=== PATIENT | male | born 1960 | race Caucasian/White ===

== ENCOUNTER 2018-09-08 19:46 | Inpatient (IN) | payer OTHER ==
[2018-09-08] MEDS: morphine 4 MG/ML VIAL IV (22:41)
[2018-09-08] MEDS: SOD CHLORIDE 0.9% 500 ML IV (22:43)
[2018-09-08 22:53] LABS: ADD MAN DIFF? NO
[2018-09-08 22:55] LABS: BASOPHIL # 0.2 10^3/ul (0.0-0.1); BASOPHILS % 1.5 % (0.0-2.0); EOSINOPHILS # 0.4 10^3/ul (0.0-0.5); EOSINOPHILS % 4.2 % (0.0-7.0); HEMATOCRIT 31.4 % (42.0-52.0); LYMPHOCYTES # 1.7 10^3/ul (0.8-2.9); LYMPHOCYTES % 16.9 % (15.0-51.0); MEAN CORPUSCULAR HEMOGLOBIN 28.2 pg (29.0-33.0); MEAN CORPUSCULAR HGB CONC 31.8 g/dl (32.0-37.0); MEAN CORPUSCULAR VOLUME 88.5 fl (82.0-101.0); MEAN PLATELET VOLUME 8.8 fl (7.4-10.4); MONOCYTES % 10.2 % (0.0-11.0); NEUTROPHIL # 6.7 10^3/ul (1.6-7.5); NEUTROPHILS % 65.7 % (39.0-77.0); PLATELET COUNT 741 10^3/UL (140-415); RED BLOOD COUNT 3.55 10^6/ul (4.70-6.10); RED CELL DISTRIBUTION WIDTH 16.6 % (11.5-14.5)
[2018-09-08 22:55] LABS: WHITE BLOOD COUNT 10.1 10^3/ul (4.8-10.8)
[2018-09-08 23:12] LABS: ANION GAP 11 (8-16); BLOOD UREA NITROGEN 10 mg/dl (7-20); CALCIUM 9.4 mg/dl (8.4-10.2); CARBON DIOXIDE 29 mmol/L (21-31); CHLORIDE 103 mmol/L (97-110); CREATININE 0.59 mg/dl (0.61-1.24); GLUCOSE 132 mg/dl (70-220); POTASSIUM 3.2 mmol/L (3.5-5.1); SODIUM 140 mmol/L (135-144)
[2018-09-08] MEDS ORDERED: ONDANSETRON 4 MG INJ (23:21)
[2018-09-09] MEDS: ONDANSETRON 4 MG INJ IV (00:26)
[2018-09-09] MEDS: ETOMIDATE 20 MG INJ IV ×3 (00:27→03:26)
[2018-09-09] MEDS: LIDOCAINE 1% (MPF) 30 ML INJ INJ ×2 (00:32→03:27)
[2018-09-09] MEDS: HALOPERIDOL 5 MG INJ IV (02:21)
[2018-09-09] MEDS ORDERED: HYDROCODONE/APAP (5/325) TAB PO (02:30)
[2018-09-09] MEDS ORDERED: NACL 0.9% 3 ML SYG IV (02:30)
[2018-09-09] MEDS: KETAMINE (50 MG/ML) 10 ML VIAL IV (03:16)
[2018-09-09] MEDS: LORAZEPAM 2 MG INJ IV (03:16)
[2018-09-09 06:12] LABS: ADD MAN DIFF? NO
[2018-09-09 06:20] LABS: BASOPHIL # 0.1 10^3/ul (0.0-0.1); BASOPHILS % 0.8 % (0.0-2.0); EOSINOPHILS # 0.4 10^3/ul (0.0-0.5); EOSINOPHILS % 3.6 % (0.0-7.0); HEMOGLOBIN 10.2 g/dl (14.0-18.0); LYMPHOCYTES # 1.9 10^3/ul (0.8-2.9); LYMPHOCYTES % 18.3 % (15.0-51.0); MEAN CORPUSCULAR HEMOGLOBIN 28.3 pg (29.0-33.0); MEAN CORPUSCULAR HGB CONC 31.9 g/dl (32.0-37.0); MEAN CORPUSCULAR VOLUME 88.9 fl (82.0-101.0); MEAN PLATELET VOLUME 8.9 fl (7.4-10.4); NEUTROPHIL # 6.8 10^3/ul (1.6-7.5); PLATELET COUNT 766 10^3/UL (140-415); RED CELL DISTRIBUTION WIDTH 16.5 % (11.5-14.5)
[2018-09-09 06:20] LABS: WHITE BLOOD COUNT 10.3 10^3/ul (4.8-10.8)
[2018-09-09 07:04] LABS: ALANINE AMINOTRANSFERASE 13 IU/L (13-69); ALBUMIN 2.7 g/dl (3.3-4.9); ALBUMIN/GLOBULIN RATIO 0.69; ALKALINE PHOSPHATASE 94 IU/L (42-121); ANION GAP 10 (8-16); ASPARTATE AMINO TRANSFERASE 26 IU/L (15-46); BILIRUBIN,INDIRECT 0.6 mg/dl (0-1.1); BILIRUBIN,TOTAL 0.6 mg/dl (0.2-1.3); BLOOD UREA NITROGEN 9 mg/dl (7-20); CALCIUM 8.8 mg/dl (8.4-10.2); CARBON DIOXIDE 30 mmol/L (21-31); CHLORIDE 104 mmol/L (97-110); CREATININE 0.59 mg/dl (0.61-1.24); GLUCOSE 91 mg/dl (70-220); SODIUM 141 mmol/L (135-144); TOTAL PROTEIN 6.6 g/dl (6.1-8.1)
[2018-09-09 07:17] LABS: POTASSIUM 2.9 mmol/L (3.5-5.1)
[2018-09-09] MEDS: SOD CHLORIDE 0.9% 100 ML (08:45)
[2018-09-09] MEDS: IOHEXOL 100 ML (08:45)
[2018-09-09] MEDS: POTASSIUM CHLORIDE 20 MEQ POWDER FOR ORAL SOLN PO (11:00)
[2018-09-09] MEDS: POTASSIUM CHLORIDE 100 ML IVPB ×2 (12:00→13:58)
[2018-09-09] MEDS: HYDROCODONE/APAP (5/325) TAB PO ×2 (12:23→20:20)
[2018-09-09] MEDS: ACETAMINOPHEN 325 MG TAB PO ×2 (12:24→20:29)
[2018-09-09] MEDS: ALBUTEROL/IPRATROPIUM (NEB) 3 ML AMP HHN ×2 (13:31→21:59)
[2018-09-09] MEDS: ENOXAPARIN 60 MG/0.6 ML SYG SC ×2 (14:38→20:33)
[2018-09-09 15:45] LABS: LACTIC ACID 1.2 mmol/L (0.5-2.0)
[2018-09-09] MEDS: BUDESONIDE (NEB) 0.5MG/2ML AMP HHN ×2 (16:49→21:59)
[2018-09-09] MEDS: LEVOFLOXACIN 750MG/D5W (PMX) 150 ML IVPB (16:55)
[2018-09-10] MEDS: HYDROCODONE/APAP (5/325) TAB PO ×4 (03:45→21:53)
[2018-09-10] MEDS: ACETAMINOPHEN 325 MG TAB PO (04:50)
[2018-09-10 06:12] LABS: ADD MAN DIFF? NO
[2018-09-10 06:22] LABS: WHITE BLOOD COUNT 11.2 10^3/ul (4.8-10.8)
[2018-09-10 06:22] LABS: BASOPHIL # 0.1 10^3/ul (0.0-0.1); EOSINOPHILS # 0.2 10^3/ul (0.0-0.5); EOSINOPHILS % 1.7 % (0.0-7.0); HEMATOCRIT 31.4 % (42.0-52.0); HEMOGLOBIN 10.1 g/dl (14.0-18.0); LYMPHOCYTES # 1.4 10^3/ul (0.8-2.9); LYMPHOCYTES % 12.1 % (15.0-51.0); MEAN CORPUSCULAR HEMOGLOBIN 28.1 pg (29.0-33.0); MEAN CORPUSCULAR HGB CONC 32.2 g/dl (32.0-37.0); MEAN CORPUSCULAR VOLUME 87.5 fl (82.0-101.0); MONOCYTE # 1.3 10^3/ul (0.3-0.9); MONOCYTES % 11.7 % (0.0-11.0); NEUTROPHILS % 71.8 % (39.0-77.0); PLATELET COUNT 741 10^3/UL (140-415); RED BLOOD COUNT 3.59 10^6/ul (4.70-6.10); RED CELL DISTRIBUTION WIDTH 16.6 % (11.5-14.5)
[2018-09-10 06:38] LABS: ANION GAP 9 (8-16); BLOOD UREA NITROGEN 8 mg/dl (7-20); CALCIUM 9.9 mg/dl (8.4-10.2); CARBON DIOXIDE 32 mmol/L (21-31); CHLORIDE 100 mmol/L (97-110); CREATININE 0.61 mg/dl (0.61-1.24); GLUCOSE 125 mg/dl (70-220); MAGNESIUM 1.4 mg/dl (1.7-2.5); PHOSPHORUS 4.7 mg/dl (2.5-4.9); POTASSIUM 4.4 mmol/L (3.5-5.1); SODIUM 137 mmol/L (135-144)
[2018-09-10] MEDS ORDERED: VANCOMYCIN IV PER PHARMACY XX (08:00)
[2018-09-10] MEDS: ALBUTEROL/IPRATROPIUM (NEB) 3 ML AMP HHN ×3 (08:42→19:48)
[2018-09-10] MEDS: BUDESONIDE (NEB) 0.5MG/2ML AMP HHN ×2 (08:42→19:48)
[2018-09-10] MEDS: VANCOMYCIN 1.25 GM in SOD CHLORIDE 0.9% 250 ML IVPB (09:53)
[2018-09-10] MEDS: ENOXAPARIN 60 MG/0.6 ML SYG SC ×2 (10:00→20:22)
[2018-09-10 10:43] LABS: ADD UMIC NO; UR ASCORBIC ACID NEGATIVE (NEGATIVE); UR BILIRUBIN (Dip) NEGATIVE (NEGATIVE); UR BLOOD (Dip) NEGATIVE (NEGATIVE); UR CLARITY CLEAR (CLEAR); UR COLOR YELLOW (YELLOW); UR GLUCOSE (Dip) NEGATIVE (NEGATIVE); UR KETONES (Dip) NEGATIVE (NEGATIVE); UR LEUKOCYTE ESTERASE (Dip) NEGATIVE Leu/ul (NEGATIVE); UR NITRITE (Dip) NEGATIVE (NEGATIVE); UR SPECIFIC GRAVITY (Dip) 1.017 (1.003-1.030); UR TOTAL PROTEIN (Dip) NEGATIVE (NEGATIVE); UR UROBILINOGEN (Dip) NEGATIVE (NEGATIVE)
[2018-09-10] MEDS: predniSONE 20 MG TAB PO (11:23)
[2018-09-10] MEDS: PIPER-TAZO 3.375 GM IV (PMX) 100 ML IVPB ×3 (12:34→23:03)
[2018-09-10] MEDS: GUAIFENESIN 20 MG/ML 5ML CUP PO (20:10)
[2018-09-10] MEDS: VANCOMYCIN 750 MG in SOD CHLORIDE 0.9% 150 ML IVPB (20:16)
[2018-09-11] MEDS: GUAIFENESIN 20 MG/ML 5ML CUP PO (01:54)
[2018-09-11] MEDS: PIPER-TAZO 3.375 GM IV (PMX) 100 ML IVPB ×3 (05:28→18:28)
[2018-09-11] MEDS: HYDROCODONE/APAP (5/325) TAB PO ×2 (05:29→16:07)
[2018-09-11 06:12] LABS: ADD MAN DIFF? NO
[2018-09-11 06:18] LABS: WHITE BLOOD COUNT 7.7 10^3/ul (4.8-10.8)
[2018-09-11 06:18] LABS: BASOPHIL # 0.1 10^3/ul (0.0-0.1); BASOPHILS % 0.8 % (0.0-2.0); EOSINOPHILS % 0.4 % (0.0-7.0); HEMATOCRIT 29.1 % (42.0-52.0); HEMOGLOBIN 9.2 g/dl (14.0-18.0); LYMPHOCYTES # 1.5 10^3/ul (0.8-2.9); LYMPHOCYTES % 19.3 % (15.0-51.0); MEAN CORPUSCULAR HGB CONC 31.6 g/dl (32.0-37.0); MEAN CORPUSCULAR VOLUME 88.4 fl (82.0-101.0); MEAN PLATELET VOLUME 9.1 fl (7.4-10.4); MONOCYTE # 1.1 10^3/ul (0.3-0.9); MONOCYTES % 13.6 % (0.0-11.0); NEUTROPHILS % 64.2 % (39.0-77.0); PLATELET COUNT 703 10^3/UL (140-415); RED BLOOD COUNT 3.29 10^6/ul (4.70-6.10); RED CELL DISTRIBUTION WIDTH 16.6 % (11.5-14.5)
[2018-09-11 06:47] LABS: ANION GAP 9 (8-16); BLOOD UREA NITROGEN 12 mg/dl (7-20); CALCIUM 9.9 mg/dl (8.4-10.2); CARBON DIOXIDE 31 mmol/L (21-31); CHLORIDE 103 mmol/L (97-110); CREATININE 0.63 mg/dl (0.61-1.24); GLUCOSE 105 mg/dl (70-220); MAGNESIUM 1.5 mg/dl (1.7-2.5); SODIUM 139 mmol/L (135-144)
[2018-09-11] MEDS: ACETAMINOPHEN 325 MG TAB PO (08:07)
[2018-09-11] MEDS: predniSONE 10 MG TAB PO (08:07)
[2018-09-11] MEDS: VANCOMYCIN 750 MG in SOD CHLORIDE 0.9% 150 ML IVPB ×2 (08:08→21:39)
[2018-09-11] MEDS: ENOXAPARIN 60 MG/0.6 ML SYG SC (08:15)
[2018-09-11] MEDS: BUDESONIDE (NEB) 0.5MG/2ML AMP HHN ×2 (08:35→20:17)
[2018-09-11] MEDS: ALBUTEROL/IPRATROPIUM (NEB) 3 ML AMP HHN ×3 (08:35→20:17)
[2018-09-11] MEDS: MAGNESIUM SULFATE 2 GM/50 ML 50 ML IVPB (10:56)
[2018-09-11] MEDS: HYDROmorphONE 0.5 MG/0.5 ML SYG IV ×2 (12:52→20:07)
[2018-09-11] MEDS: RIVAROXABAN 15 MG TABLET PO (18:30)
[2018-09-11 21:04] LABS: VANCOMYCIN,TROUGH < 5.0 ug/ml (10.0-20.0)
[2018-09-12] MEDS: PIPER-TAZO 3.375 GM IV (PMX) 100 ML IVPB ×4 (00:16→18:08)
[2018-09-12] MEDS: HYDROmorphONE 0.5 MG/0.5 ML SYG IV ×4 (01:38→22:01)
[2018-09-12 05:59] LABS: ADD MAN DIFF? NO
[2018-09-12 06:10] LABS: BASOPHIL # 0.1 10^3/ul (0.0-0.1); BASOPHILS % 0.7 % (0.0-2.0); EOSINOPHILS % 0.3 % (0.0-7.0); HEMOGLOBIN 9.4 g/dl (14.0-18.0); LYMPHOCYTES # 1.9 10^3/ul (0.8-2.9); LYMPHOCYTES % 20.5 % (15.0-51.0); MEAN CORPUSCULAR HEMOGLOBIN 28.4 pg (29.0-33.0); MEAN CORPUSCULAR HGB CONC 31.3 g/dl (32.0-37.0); MEAN CORPUSCULAR VOLUME 90.6 fl (82.0-101.0); MONOCYTES % 10.5 % (0.0-11.0); NEUTROPHIL # 6.2 10^3/ul (1.6-7.5); NEUTROPHILS % 65.8 % (39.0-77.0); PLATELET COUNT 752 10^3/UL (140-415); RED BLOOD COUNT 3.31 10^6/ul (4.70-6.10); RED CELL DISTRIBUTION WIDTH 16.8 % (11.5-14.5)
[2018-09-12 06:10] LABS: WHITE BLOOD COUNT 9.5 10^3/ul (4.8-10.8)
[2018-09-12 06:33] LABS: ANION GAP 8 (8-16); BLOOD UREA NITROGEN 11 mg/dl (7-20); CALCIUM 8.5 mg/dl (8.4-10.2); CARBON DIOXIDE 28 mmol/L (21-31); CHLORIDE 109 mmol/L (97-110); CREATININE 0.64 mg/dl (0.61-1.24); GLUCOSE 98 mg/dl (70-220); MAGNESIUM 1.8 mg/dl (1.7-2.5); PHOSPHORUS 3.4 mg/dl (2.5-4.9); POTASSIUM 3.9 mmol/L (3.5-5.1); SODIUM 141 mmol/L (135-144)
[2018-09-12] MEDS: VANCOMYCIN 1.25 GM in SOD CHLORIDE 0.9% 250 ML IVPB ×2 (06:36→19:08)
[2018-09-12] MEDS: ALBUTEROL/IPRATROPIUM (NEB) 3 ML AMP HHN ×3 (08:00→21:43)
[2018-09-12] MEDS: RIVAROXABAN 15 MG TABLET PO ×2 (08:12→18:07)
[2018-09-12] MEDS: predniSONE 20 MG TAB PO (08:12)
[2018-09-12] MEDS: BUDESONIDE (NEB) 0.5MG/2ML AMP HHN ×2 (09:00→21:43)
[2018-09-12] MEDS: GUAIFENESIN 20 MG/ML 5ML CUP PO (13:37)
[2018-09-12] MEDS: ONDANSETRON 4 MG INJ IV (18:20)
[2018-09-13] MEDS: PIPER-TAZO 3.375 GM IV (PMX) 100 ML IVPB ×4 (00:11→17:42)
[2018-09-13] MEDS: HYDROCODONE/APAP (5/325) TAB PO ×2 (00:21→17:42)
[2018-09-13 05:50] LABS: ADD MAN DIFF? NO
[2018-09-13 05:53] LABS: BASOPHIL # 0.1 10^3/ul (0.0-0.1); BASOPHILS % 1.1 % (0.0-2.0); EOSINOPHILS % 0.3 % (0.0-7.0); HEMATOCRIT 30.9 % (42.0-52.0); HEMOGLOBIN 9.7 g/dl (14.0-18.0); LYMPHOCYTES # 1.8 10^3/ul (0.8-2.9); LYMPHOCYTES % 19.9 % (15.0-51.0); MEAN CORPUSCULAR HEMOGLOBIN 28.1 pg (29.0-33.0); MEAN CORPUSCULAR HGB CONC 31.4 g/dl (32.0-37.0); MEAN CORPUSCULAR VOLUME 89.6 fl (82.0-101.0); MONOCYTE # 1.1 10^3/ul (0.3-0.9); MONOCYTES % 12.2 % (0.0-11.0); NEUTROPHIL # 5.7 10^3/ul (1.6-7.5); NEUTROPHILS % 64.4 % (39.0-77.0); RED BLOOD COUNT 3.45 10^6/ul (4.70-6.10)
[2018-09-13 05:53] LABS: WHITE BLOOD COUNT 8.9 10^3/ul (4.8-10.8)
[2018-09-13 06:10] LABS: PLATELET COUNT 720 10^3/UL (140-415)
[2018-09-13 06:31] LABS: ANION GAP 8 (8-16); BLOOD UREA NITROGEN 10 mg/dl (7-20); CALCIUM 9.5 mg/dl (8.4-10.2); CARBON DIOXIDE 34 mmol/L (21-31); CHLORIDE 102 mmol/L (97-110); CREATININE 0.69 mg/dl (0.61-1.24); GLUCOSE 98 mg/dl (70-220); MAGNESIUM 1.7 mg/dl (1.7-2.5); PHOSPHORUS 3.7 mg/dl (2.5-4.9); POTASSIUM 4.3 mmol/L (3.5-5.1); SODIUM 140 mmol/L (135-144)
[2018-09-13] MEDS: VANCOMYCIN 1.25 GM in SOD CHLORIDE 0.9% 250 ML IVPB ×2 (06:50→17:43)
[2018-09-13] MEDS: HYDROmorphONE 0.5 MG/0.5 ML SYG IV ×3 (06:51→20:14)
[2018-09-13] MEDS: BUDESONIDE (NEB) 0.5MG/2ML AMP HHN ×2 (07:52→20:54)
[2018-09-13] MEDS: ALBUTEROL/IPRATROPIUM (NEB) 3 ML AMP HHN ×3 (07:52→20:54)
[2018-09-13] MEDS: predniSONE 20 MG TAB PO (08:14)
[2018-09-13] MEDS: RIVAROXABAN 15 MG TABLET PO ×2 (08:15→17:42)
[2018-09-14] MEDS: PIPER-TAZO 3.375 GM IV (PMX) 100 ML IVPB ×4 (00:08→17:30)
[2018-09-14] MEDS: HYDROmorphONE 0.5 MG/0.5 ML SYG IV ×6 (00:08→23:01)
[2018-09-14] MEDS: ONDANSETRON 4 MG INJ IV ×4 (00:14→23:01)
[2018-09-14] MEDS: VANCOMYCIN 1.25 GM in SOD CHLORIDE 0.9% 250 ML IVPB (05:58)
[2018-09-14 06:25] LABS: ADD MAN DIFF? NO
[2018-09-14 06:35] LABS: WHITE BLOOD COUNT 8.6 10^3/ul (4.8-10.8)
[2018-09-14 06:35] LABS: BASOPHIL # 0.1 10^3/ul (0.0-0.1); BASOPHILS % 1.2 % (0.0-2.0); EOSINOPHILS # 0.1 10^3/ul (0.0-0.5); EOSINOPHILS % 0.6 % (0.0-7.0); HEMATOCRIT 33.5 % (42.0-52.0); HEMOGLOBIN 10.4 g/dl (14.0-18.0); LYMPHOCYTES % 23.1 % (15.0-51.0); MEAN CORPUSCULAR HEMOGLOBIN 28.3 pg (29.0-33.0); MEAN PLATELET VOLUME 10.5 fl (7.4-10.4); MONOCYTE # 1.1 10^3/ul (0.3-0.9); MONOCYTES % 12.5 % (0.0-11.0); NEUTROPHIL # 5.1 10^3/ul (1.6-7.5); NEUTROPHILS % 59.2 % (39.0-77.0); PLATELET COUNT 628 10^3/UL (140-415); RED BLOOD COUNT 3.68 10^6/ul (4.70-6.10); RED CELL DISTRIBUTION WIDTH 16.8 % (11.5-14.5)
[2018-09-14 07:10] LABS: VANCOMYCIN,TROUGH 8.1 ug/ml (10.0-20.0)
[2018-09-14 07:19] LABS: ALBUMIN 3.6 g/dl (3.3-4.9); ANION GAP 10 (8-16); BLOOD UREA NITROGEN 14 mg/dl (7-20); CALCIUM 9.5 mg/dl (8.4-10.2); CARBON DIOXIDE 31 mmol/L (21-31); CHLORIDE 104 mmol/L (97-110); CREATININE 0.72 mg/dl (0.61-1.24); GLUCOSE 80 mg/dl (70-220); MAGNESIUM 1.7 mg/dl (1.7-2.5); PHOSPHORUS 5.2 mg/dl (2.5-4.9); POTASSIUM 4.6 mmol/L (3.5-5.1); SODIUM 140 mmol/L (135-144)
[2018-09-14] MEDS: ALBUTEROL/IPRATROPIUM (NEB) 3 ML AMP HHN ×4 (08:24→23:17)
[2018-09-14] MEDS: predniSONE 20 MG TAB PO (08:52)
[2018-09-14] MEDS: RIVAROXABAN 15 MG TABLET PO ×2 (08:53→17:29)
[2018-09-14] MEDS: BUDESONIDE (NEB) 0.5MG/2ML AMP HHN ×2 (09:00→19:58)
[2018-09-14] MEDS: VANCOMYCIN 750 MG in SOD CHLORIDE 0.9% 150 ML IVPB ×2 (14:24→22:08)
[2018-09-15] MEDS: PIPER-TAZO 3.375 GM IV (PMX) 100 ML IVPB ×4 (00:08→17:35)
[2018-09-15] MEDS: HYDROmorphONE 0.5 MG/0.5 ML SYG IV ×3 (03:12→11:18)
[2018-09-15] MEDS: ONDANSETRON 4 MG INJ IV ×5 (03:12→23:23)
[2018-09-15] MEDS: LIDOCAINE 5% 35 GM OINT TOP (03:59)
[2018-09-15] MEDS: VANCOMYCIN 750 MG in SOD CHLORIDE 0.9% 150 ML IVPB ×2 (06:34→15:31)
[2018-09-15] MEDS: predniSONE 20 MG TAB PO (08:09)
[2018-09-15] MEDS: RIVAROXABAN 15 MG TABLET PO ×2 (08:09→17:35)
[2018-09-15] MEDS: BUDESONIDE (NEB) 0.5MG/2ML AMP HHN ×2 (08:30→20:25)
[2018-09-15] MEDS: ALBUTEROL/IPRATROPIUM (NEB) 3 ML AMP HHN ×3 (08:30→20:25)
[2018-09-15 14:15] LABS: ADD MAN DIFF? NO
[2018-09-15 14:18] LABS: ABNORMAL IP MESSAGE 1; BASOPHIL # 0.1 10^3/ul (0.0-0.1); BASOPHILS % 0.5 % (0.0-2.0); EOSINOPHILS % 0.3 % (0.0-7.0); HEMATOCRIT 31.7 % (42.0-52.0); LYMPHOCYTES # 0.6 10^3/ul (0.8-2.9); LYMPHOCYTES % 5.4 % (15.0-51.0); MEAN CORPUSCULAR HEMOGLOBIN 28.6 pg (29.0-33.0); MEAN CORPUSCULAR HGB CONC 31.5 g/dl (32.0-37.0); MEAN CORPUSCULAR VOLUME 90.6 fl (82.0-101.0); MEAN PLATELET VOLUME 9.3 fl (7.4-10.4); MONOCYTE # 0.5 10^3/ul (0.3-0.9); MONOCYTES % 3.9 % (0.0-11.0); NEUTROPHIL # 9.7 10^3/ul (1.6-7.5); NEUTROPHILS % 84.4 % (39.0-77.0); PLATELET COUNT 752 10^3/UL (140-415); POSITIVE DIFF @See below; RED CELL DISTRIBUTION WIDTH 16.8 % (11.5-14.5)
[2018-09-15 14:18] LABS: WHITE BLOOD COUNT 11.5 10^3/ul (4.8-10.8)
[2018-09-15 14:43] LABS: ANION GAP 11 (5-13); BLOOD UREA NITROGEN 14 mg/dl (7-20); CALCIUM 9.4 mg/dl (8.4-10.2); CARBON DIOXIDE 32 mmol/L (21-31); CHLORIDE 100 mmol/L (97-110); CREATININE 0.69 mg/dl (0.61-1.24); GLUCOSE 127 mg/dl (70-220); MAGNESIUM 1.8 mg/dl (1.7-2.5); POTASSIUM 4.5 mmol/L (3.5-5.1); SODIUM 138 mmol/L (135-144)
[2018-09-15] MEDS: HYDROmorphONE 1 MG/ML SYG IV ×3 (15:31→23:24)
[2018-09-15] MEDS: DICLOFENAC SODIUM 1% GEL 100 GM TUBE TP ×2 (17:34→21:41)
[2018-09-15] MEDS: VANCOMYCIN 1 GM 250 ML IVPB (21:42)
[2018-09-16] MEDS: PIPER-TAZO 3.375 GM IV (PMX) 100 ML IVPB ×4 (00:36→17:58)
[2018-09-16] MEDS: GUAIFENESIN 20 MG/ML 5ML CUP PO (00:50)
[2018-09-16] MEDS: HYDROmorphONE 1 MG/ML SYG IV ×5 (03:23→20:39)
[2018-09-16] MEDS: ONDANSETRON 4 MG INJ IV ×5 (03:23→20:38)
[2018-09-16 06:01] LABS: ABNORMAL IP MESSAGE 1; HEMATOCRIT 30.1 % (42.0-52.0); HEMOGLOBIN 9.6 g/dl (14.0-18.0); MEAN CORPUSCULAR HEMOGLOBIN 28.6 pg (29.0-33.0); MEAN CORPUSCULAR HGB CONC 31.9 g/dl (32.0-37.0); MEAN CORPUSCULAR VOLUME 89.6 fl (82.0-101.0); MEAN PLATELET VOLUME 8.9 fl (7.4-10.4); PLATELET COUNT 697 10^3/UL (140-415); POSITIVE DIFF @See below; RED BLOOD COUNT 3.36 10^6/ul (4.70-6.10)
[2018-09-16 06:01] LABS: WHITE BLOOD COUNT 11.2 10^3/ul (4.8-10.8)
[2018-09-16 06:09] LABS: ADD MAN DIFF? YES
[2018-09-16 06:37] LABS: ALBUMIN 3.1 g/dl (3.3-4.9); ANION GAP 11 (5-13); BLOOD UREA NITROGEN 13 mg/dl (7-20); CALCIUM 9.1 mg/dl (8.4-10.2); CARBON DIOXIDE 30 mmol/L (21-31); CHLORIDE 103 mmol/L (97-110); CREATININE 0.63 mg/dl (0.61-1.24); GLUCOSE 91 mg/dl (70-220); MAGNESIUM 1.9 mg/dl (1.7-2.5); PHOSPHORUS 3.9 mg/dl (2.5-4.9); POTASSIUM 4.2 mmol/L (3.5-5.1); SODIUM 140 mmol/L (135-144)
[2018-09-16] MEDS: VANCOMYCIN 1 GM 250 ML IVPB ×3 (07:27→23:32)
[2018-09-16] MEDS: ALBUTEROL/IPRATROPIUM (NEB) 3 ML AMP HHN ×3 (07:46→19:58)
[2018-09-16] MEDS: BUDESONIDE (NEB) 0.5MG/2ML AMP HHN ×2 (07:50→19:58)
[2018-09-16] MEDS: predniSONE 20 MG TAB PO (08:23)
[2018-09-16] MEDS: RIVAROXABAN 15 MG TABLET PO (08:23)
[2018-09-16] MEDS: DICLOFENAC SODIUM 1% GEL 100 GM TUBE TP ×4 (08:23→20:39)
[2018-09-16 09:27] LABS: BASOPHIL #M 0.6 10^3/ul (0.0-0.0); BASOPHILS % (M) 6 % (0-2); EOSINOPHILS % (M) 2 % (0-7); GIANT THROMBO% (M) 2 % (0-0); HYPOCHROMASIA 1+ (0-0); LYMPHOCYTES #M 2.3 10^3/ul (0.8-2.9); LYMPHOCYTES % (M) 21 % (15-51); METAMYELOCYTES #M 0.1 10^3/ul (0.0-0.0); METAMYELOCYTES %M 1 % (0-0); MONOCYTE #M 0.8 10^3/ul (0.3-0.9); MONOCYTES % (M) 8 % (0-11); PLATELET ESTIMATE INCREASED; REACTIVE LYMPHOCYTES #M 0.1 10^3/ul (0.0-0.0); REACTIVE LYMPHOCYTES% (M) 1 % (0-0); SEGMENTED NEUTROPHILS (M) % 61 % (39-77); SMUDGE%M 5 % (0-0)
[2018-09-17] MEDS: HYDROmorphONE 1 MG/ML SYG IV ×6 (00:53→23:00)
[2018-09-17] MEDS: ONDANSETRON 4 MG INJ IV ×5 (00:53→19:20)
[2018-09-17] MEDS: PIPER-TAZO 3.375 GM IV (PMX) 100 ML IVPB ×4 (01:55→18:00)
[2018-09-17 05:46] LABS: VANCOMYCIN,TROUGH 16.3 ug/ml (10.0-20.0)
[2018-09-17] MEDS: VANCOMYCIN 1 GM 250 ML IVPB ×4 (07:29→22:01)
[2018-09-17] MEDS: ALBUTEROL/IPRATROPIUM (NEB) 3 ML AMP HHN ×3 (08:39→20:09)
[2018-09-17] MEDS: BUDESONIDE (NEB) 0.5MG/2ML AMP HHN ×2 (08:39→20:09)
[2018-09-17] MEDS: predniSONE 20 MG TAB PO (09:41)
[2018-09-17] MEDS: DICLOFENAC SODIUM 1% GEL 100 GM TUBE TP ×4 (09:46→21:52)
[2018-09-17] MEDS: GUAIFENESIN 20 MG/ML 5ML CUP PO (10:51)
[2018-09-18] MEDS: PIPER-TAZO 3.375 GM IV (PMX) 100 ML IVPB ×4 (00:18→18:30)
[2018-09-18] MEDS: HYDROmorphONE 1 MG/ML SYG IV ×5 (03:23→21:20)
[2018-09-18] MEDS: VANCOMYCIN 1 GM 250 ML IVPB (06:51)
[2018-09-18] MEDS: predniSONE 20 MG TAB PO (08:19)
[2018-09-18] MEDS: DICLOFENAC SODIUM 1% GEL 100 GM TUBE TP ×4 (08:20→21:19)
[2018-09-18] MEDS: ONDANSETRON 4 MG INJ IV (10:15)
[2018-09-18] MEDS: ALBUTEROL/IPRATROPIUM (NEB) 3 ML AMP HHN ×3 (10:21→20:02)
[2018-09-18] MEDS: BUDESONIDE (NEB) 0.5MG/2ML AMP HHN ×2 (10:21→20:02)
[2018-09-18 10:35] LABS: ABNORMAL IP MESSAGE 1; HEMATOCRIT 31.9 % (42.0-52.0); HEMOGLOBIN 9.8 g/dl (14.0-18.0); MEAN CORPUSCULAR HEMOGLOBIN 27.8 pg (29.0-33.0); MEAN CORPUSCULAR HGB CONC 30.7 g/dl (32.0-37.0); MEAN CORPUSCULAR VOLUME 90.4 fl (82.0-101.0); MEAN PLATELET VOLUME 8.9 fl (7.4-10.4); PLATELET COUNT 817 10^3/UL (140-415); POSITIVE DIFF @See below; RED BLOOD COUNT 3.53 10^6/ul (4.70-6.10); RED CELL DISTRIBUTION WIDTH 17.2 % (11.5-14.5)
[2018-09-18 10:35] LABS: WHITE BLOOD COUNT 12.7 10^3/ul (4.8-10.8)
[2018-09-18 10:39] LABS: ADD MAN DIFF? YES
[2018-09-18] MEDS ORDERED: HEPARIN 5,000 UNIT/0.5 ML VIAL ×3 (10:39→21:07)
[2018-09-18 10:43] LABS: PLATELET COUNT 817 10^3/UL (140-415)
[2018-09-18] MEDS: HEPARIN SODIUM 5,000 UNIT/ML VIAL SC ×3 (10:47→21:35)
[2018-09-18 10:54] LABS: INR 0.94; PARTIAL THROMBOPLASTIN TIME 28.5 Sec (23.0-35.0); PROTIME 12.7 Sec (11.9-14.9)
[2018-09-18 10:57] LABS: ANION GAP 5 (5-13); BLOOD UREA NITROGEN 17 mg/dl (7-20); CALCIUM 9.3 mg/dl (8.4-10.2); CARBON DIOXIDE 32 mmol/L (21-31); CHLORIDE 102 mmol/L (97-110); CREATININE 0.83 mg/dl (0.61-1.24); GLUCOSE 101 mg/dl (70-220); MAGNESIUM 1.8 mg/dl (1.7-2.5); PHOSPHORUS 4.2 mg/dl (2.5-4.9); POTASSIUM 4.1 mmol/L (3.5-5.1); SODIUM 139 mmol/L (135-144)
[2018-09-18 11:00] LABS: BASOPHIL #M 0.2 10^3/ul (0.0-0.0); BASOPHILS % (M) 2 % (0-2); EOSINOPHILS % (M) 1 % (0-7); LYMPHOCYTES #M 1.2 10^3/ul (0.8-2.9); LYMPHOCYTES % (M) 10 % (15-51); MONOCYTE #M 1.7 10^3/ul (0.3-0.9); MONOCYTES % (M) 14 % (0-11); MYELOCYTES #M 0.1 10^3/ul (0.0-0.0); MYELOCYTES % (M) 1 % (0-0); PLATELET ESTIMATE INCREASED; REACTIVE LYMPHOCYTES #M 0.2 10^3/ul (0.0-0.0); REACTIVE LYMPHOCYTES% (M) 2 % (0-0); SEGMENTED NEUTROPHILS (M) % 70 % (39-77); SMUDGE%M 13 % (0-0)
[2018-09-18 12:00] LABS: THROMBIN TIME 17.5 SEC (13.8-19.1)
[2018-09-18] MEDS: HYDROCODONE/APAP (5/325) TAB PO (22:18)
[2018-09-19] MEDS: HYDROmorphONE 1 MG/ML SYG IV ×6 (01:16→22:25)
[2018-09-19 05:16] LABS: ABNORMAL IP MESSAGE 1; HEMATOCRIT 30.2 % (42.0-52.0); HEMOGLOBIN 9.5 g/dl (14.0-18.0); MEAN CORPUSCULAR HEMOGLOBIN 28.6 pg (29.0-33.0); MEAN CORPUSCULAR HGB CONC 31.5 g/dl (32.0-37.0); MEAN PLATELET VOLUME 8.9 fl (7.4-10.4); PLATELET COUNT 753 10^3/UL (140-415); POSITIVE DIFF @See below; RED BLOOD COUNT 3.32 10^6/ul (4.70-6.10)
[2018-09-19 05:16] LABS: WHITE BLOOD COUNT 12.7 10^3/ul (4.8-10.8)
[2018-09-19 05:22] LABS: ADD MAN DIFF? YES
[2018-09-19 05:34] LABS: PROTIME 12.2 Sec (11.9-14.9)
[2018-09-19] MEDS ORDERED: HEPARIN 5,000 UNIT/0.5 ML VIAL ×2 (05:46→14:13)
[2018-09-19 05:51] LABS: ALBUMIN 2.9 g/dl (3.3-4.9); ANION GAP 9 (5-13); BLOOD UREA NITROGEN 20 mg/dl (7-20); CALCIUM 9.3 mg/dl (8.4-10.2); CARBON DIOXIDE 27 mmol/L (21-31); CHLORIDE 103 mmol/L (97-110); CREATININE 0.72 mg/dl (0.61-1.24); GLUCOSE 83 mg/dl (70-220); MAGNESIUM 1.7 mg/dl (1.7-2.5); PHOSPHORUS 4.1 mg/dl (2.5-4.9); POTASSIUM 3.7 mmol/L (3.5-5.1); SODIUM 139 mmol/L (135-144)
[2018-09-19] MEDS: PIPER-TAZO 3.375 GM IV (PMX) 100 ML IVPB ×4 (05:53→17:37)
[2018-09-19] MEDS: HEPARIN SODIUM 5,000 UNIT/ML VIAL SC ×3 (06:09→21:51)
[2018-09-19 07:09] LABS: ANISOCYTOSIS 1+ (0-0); BAND NEUTROPHILS #M 0.1 10^3/ul (0.0-0.6); BAND NEUTROPHILS % (M) 1 % (0-4); BASOPHIL #M 0.2 10^3/ul (0.0-0.0); BASOPHILS % (M) 2 % (0-2); EOSINOPHILS % (M) 2 % (0-7); HYPOCHROMASIA 1+ (0-0); LYMPHOCYTES #M 2.5 10^3/ul (0.8-2.9); LYMPHOCYTES % (M) 20 % (15-51); METAMYELOCYTES #M 0.5 10^3/ul (0.0-0.0); METAMYELOCYTES %M 4 % (0-0); MONOCYTE #M 0.8 10^3/ul (0.3-0.9); MONOCYTES % (M) 7 % (0-11); MYELOCYTES #M 0.5 10^3/ul (0.0-0.0); MYELOCYTES % (M) 4 % (0-0); PLATELET ESTIMATE INCREASED; POLYCHROMASIA 1+ (0-0); SEG NEUT #M 7.6 10^3/ul (1.6-7.5); SEGMENTED NEUTROPHILS (M) % 60 % (39-77); SMUDGE%M 11 % (0-0); TARGET CELLS 1+ (0-0)
[2018-09-19] MEDS: ALBUTEROL/IPRATROPIUM (NEB) 3 ML AMP HHN ×3 (07:55→20:19)
[2018-09-19] MEDS: BUDESONIDE (NEB) 0.5MG/2ML AMP HHN ×2 (07:56→20:19)
[2018-09-19] MEDS: predniSONE 20 MG TAB PO (08:22)
[2018-09-19] MEDS: DICLOFENAC SODIUM 1% GEL 100 GM TUBE TP ×4 (08:23→22:00)
[2018-09-19] MEDS: ONDANSETRON 4 MG INJ IV (10:07)
[2018-09-20] MEDS: PIPER-TAZO 3.375 GM IV (PMX) 100 ML IVPB ×4 (00:01→18:33)
[2018-09-20] MEDS: HYDROmorphONE 1 MG/ML SYG IV ×3 (02:28→20:36)
[2018-09-20 05:59] LABS: HEMATOCRIT 34.6 % (42.0-52.0); HEMOGLOBIN 10.8 g/dl (14.0-18.0); MEAN CORPUSCULAR HEMOGLOBIN 28.4 pg (29.0-33.0); MEAN CORPUSCULAR HGB CONC 31.2 g/dl (32.0-37.0); MEAN CORPUSCULAR VOLUME 91.1 fl (82.0-101.0); MEAN PLATELET VOLUME 9.1 fl (7.4-10.4); PLATELET COUNT 909 10^3/UL (140-415); RED CELL DISTRIBUTION WIDTH 17.6 % (11.5-14.5)
[2018-09-20 05:59] LABS: WHITE BLOOD COUNT 14.3 10^3/ul (4.8-10.8)
[2018-09-20 06:00] LABS: ABNORMAL IP MESSAGE 1; POSITIVE DIFF @See below
[2018-09-20 06:13] LABS: ALBUMIN 3.9 g/dl (3.3-4.9); ANION GAP 9 (5-13); BLOOD UREA NITROGEN 18 mg/dl (7-20); CALCIUM 9.9 mg/dl (8.4-10.2); CARBON DIOXIDE 29 mmol/L (21-31); CHLORIDE 102 mmol/L (97-110); CREATININE 0.78 mg/dl (0.61-1.24); GLUCOSE 82 mg/dl (70-220); MAGNESIUM 1.9 mg/dl (1.7-2.5); PHOSPHORUS 4.8 mg/dl (2.5-4.9); POTASSIUM 4.3 mmol/L (3.5-5.1); SODIUM 140 mmol/L (135-144)
[2018-09-20 06:28] LABS: ADD MAN DIFF? YES
[2018-09-20] MEDS ORDERED: EPHEDrine SULFATE 50 MG/5 ML SYG (07:00)
[2018-09-20] MEDS ORDERED: NEOSTIGMINE 3 MG/3 ML SYRINGE ×2 (07:00→11:13)
[2018-09-20] MEDS: ALBUTEROL/IPRATROPIUM (NEB) 3 ML AMP HHN ×5 (08:00→20:05)
[2018-09-20 08:33] LABS: ANISOCYTOSIS 1+ (0-0); BAND NEUTROPHILS #M 0.2 10^3/ul (0.0-0.6); BAND NEUTROPHILS % (M) 2 % (0-4); BASOPHIL #M 0.1 10^3/ul (0.0-0.0); BASOPHILS % (M) 1 % (0-2); EOSINOPHILS % (M) 3 % (0-7); LYMPHOCYTES % (M) 21 % (15-51); MONOCYTE #M 1.2 10^3/ul (0.3-0.9); MONOCYTES % (M) 9 % (0-11); MYELOCYTES #M 0.1 10^3/ul (0.0-0.0); MYELOCYTES % (M) 1 % (0-0); PLATELET ESTIMATE INCREASED; SEGMENTED NEUTROPHILS (M) % 63 % (39-77); SPHEROCYTES 1+ (0-0); TARGET CELLS 1+ (0-0)
[2018-09-20] MEDS: predniSONE 20 MG TAB PO (08:33)
[2018-09-20] MEDS: DICLOFENAC SODIUM 1% GEL 100 GM TUBE TP ×4 (08:39→20:36)
[2018-09-20] MEDS: BUDESONIDE (NEB) 0.5MG/2ML AMP HHN ×3 (09:00→20:05)
[2018-09-20] MEDS ORDERED: MINERAL OIL LIGHT 10 ML VIAL (09:58)
[2018-09-20] MEDS: LIDOCAINE 0.5% (MDV) 50 ML INJ (11:03)
[2018-09-20] MEDS: BUPIVACAINE 0.5%/EPI (SDV) 30 ML INJ (11:04)
[2018-09-20] MEDS ORDERED: ROCURONIUM 50 MG INJ ×4 (11:13→14:26)
[2018-09-20] MEDS ORDERED: GLYCOPYRROLATE 0.4 MG INJ (11:13)
[2018-09-20] MEDS ORDERED: SUCCINYLCHOLINE CHLORIDE 100 MG/5 ML SYG IV (11:13)
[2018-09-20] MEDS ORDERED: LIDOCAINE 2% (SDV) 5 ML INJ (11:13)
[2018-09-20] MEDS ORDERED: PROPOFOL 20 ML ×2 (11:13→11:54)
[2018-09-20] MEDS ORDERED: METOCLOPRAMIDE 10 MG INJ (11:54)
[2018-09-20] MEDS ORDERED: morphine SULFATE/PF (10 MG/10 ML) INJ (11:54)
[2018-09-20] MEDS ORDERED: MIDAZOLAM 1 MG/ML 2 ML INJ (11:54)
[2018-09-20] MEDS ORDERED: PHENYLephrine (100 MCG/ML) 5ML SYG ×3 (12:11→14:37)
[2018-09-20] MEDS ORDERED: ONDANSETRON 4 MG INJ (12:54)
[2018-09-20] MEDS: HEMOSTATIC MATRIX/ THROMBIN 1 EA SYG ZFS (13:58)
[2018-09-20 14:00] LABS: IMMEDIATE SPIN CROSSMATCH 1 4
[2018-09-20] MEDS ORDERED: FENTAnyl 50 MCG/ML VIAL (15:07)
[2018-09-20] MEDS ORDERED: MEPERIDINE 100 MG INJ (15:07)
[2018-09-20] MEDS: THROMBIN(HUM PLAS)/FIBRINOG/CA 5 ML VIAL TOP ×2 (15:38→15:39)
[2018-09-20 16:11] LABS: WHITE BLOOD COUNT 21.6 10^3/ul (4.8-10.8)
[2018-09-20 16:11] LABS: ABNORMAL IP MESSAGE 1; HEMATOCRIT 33.5 % (42.0-52.0); HEMOGLOBIN 10.8 g/dl (14.0-18.0); MEAN CORPUSCULAR HGB CONC 32.2 g/dl (32.0-37.0); MEAN CORPUSCULAR VOLUME 90.1 fl (82.0-101.0); MEAN PLATELET VOLUME 8.9 fl (7.4-10.4); PLATELET COUNT 799 10^3/UL (140-415); POSITIVE DIFF @See below; RED BLOOD COUNT 3.72 10^6/ul (4.70-6.10); RED CELL DISTRIBUTION WIDTH 16.5 % (11.5-14.5)
[2018-09-20 16:15] LABS: ADD MAN DIFF? YES
[2018-09-20 16:39] LABS: B-TYPE NATRIURETIC PEPTIDE 223 PG/ML (0-125)
[2018-09-20 17:07] LABS: ANISOCYTOSIS 1+ (0-0); BAND NEUTROPHILS #M 1.9 10^3/ul (0.0-0.6); BAND NEUTROPHILS % (M) 9 % (0-4); BASOPHIL #M 0.2 10^3/ul (0.0-0.0); BASOPHILS % (M) 1 % (0-2); GIANT THROMBO% (M) 6 % (0-0); LYMPHOCYTES #M 1.9 10^3/ul (0.8-2.9); LYMPHOCYTES % (M) 9 % (15-51); MONOCYTE #M 0.8 10^3/ul (0.3-0.9); MONOCYTES % (M) 4 % (0-11); MYELOCYTES #M 0.2 10^3/ul (0.0-0.0); MYELOCYTES % (M) 1 % (0-0); PLATELET ESTIMATE INCREASED; SEG NEUT #M 16.8 10^3/ul (1.6-7.5); SEGMENTED NEUTROPHILS (M) % 76 % (39-77); SMUDGE%M 26 % (0-0)
[2018-09-20] MEDS: HYDROCODONE/APAP (10/325) TAB PO (17:10)
[2018-09-20] MEDS: 1/2 NS + KCL 20 MEQ 1,000 ML IV (17:26)
[2018-09-20] MEDS: ONDANSETRON 4 MG INJ IV (20:41)
[2018-09-21] MEDS: 1/2 NS + KCL 20 MEQ 1,000 ML IV ×2 (00:30→08:30)
[2018-09-21] MEDS: PIPER-TAZO 3.375 GM IV (PMX) 100 ML IVPB ×5 (00:41→23:07)
[2018-09-21] MEDS: HYDROmorphONE 1 MG/ML SYG IV ×4 (00:41→20:10)
[2018-09-21] MEDS: HYDROCODONE/APAP (10/325) TAB PO (03:27)
[2018-09-21 05:16] LABS: ADD MAN DIFF? NO
[2018-09-21 05:21] LABS: WHITE BLOOD COUNT 29.2 10^3/ul (4.8-10.8)
[2018-09-21 05:21] LABS: ABNORMAL IP MESSAGE 1; BASOPHIL # 0.2 10^3/ul (0.0-0.1); BASOPHILS % 0.5 % (0.0-2.0); EOSINOPHILS % 0.1 % (0.0-7.0); HEMATOCRIT 30.7 % (42.0-52.0); HEMOGLOBIN 9.9 g/dl (14.0-18.0); LYMPHOCYTES # 1.2 10^3/ul (0.8-2.9); LYMPHOCYTES % 4.1 % (15.0-51.0); MEAN CORPUSCULAR HEMOGLOBIN 29.2 pg (29.0-33.0); MEAN CORPUSCULAR HGB CONC 32.2 g/dl (32.0-37.0); MEAN CORPUSCULAR VOLUME 90.6 fl (82.0-101.0); MEAN PLATELET VOLUME 8.8 fl (7.4-10.4); MONOCYTE # 2.1 10^3/ul (0.3-0.9); MONOCYTES % 7.2 % (0.0-11.0); NEUTROPHIL # 25.1 10^3/ul (1.6-7.5); NEUTROPHILS % 85.7 % (39.0-77.0); PLATELET COUNT 656 10^3/UL (140-415); POSITIVE DIFF @See below; RED BLOOD COUNT 3.39 10^6/ul (4.70-6.10); RED CELL DISTRIBUTION WIDTH 16.8 % (11.5-14.5)
[2018-09-21 05:43] LABS: ALBUMIN 2.7 g/dl (3.3-4.9); ANION GAP 10 (5-13); BLOOD UREA NITROGEN 17 mg/dl (7-20); CALCIUM 9.3 mg/dl (8.4-10.2); CARBON DIOXIDE 22 mmol/L (21-31); CHLORIDE 101 mmol/L (97-110); CREATININE 0.68 mg/dl (0.61-1.24); GLUCOSE 93 mg/dl (70-220); MAGNESIUM 1.3 mg/dl (1.7-2.5); PHOSPHORUS 4.6 mg/dl (2.5-4.9); POTASSIUM 5.5 mmol/L (3.5-5.1); SODIUM 133 mmol/L (135-144)
[2018-09-21 08:59] LABS: POTASSIUM 4.3 mmol/L (3.5-5.1)
[2018-09-21] MEDS: BUDESONIDE (NEB) 0.5MG/2ML AMP HHN ×2 (08:59→19:53)
[2018-09-21] MEDS: ALBUTEROL/IPRATROPIUM (NEB) 3 ML AMP HHN ×3 (08:59→19:53)
[2018-09-21] MEDS: MAGNESIUM SULFATE 2 GM/50 ML 50 ML IVPB (09:39)
[2018-09-21] MEDS: predniSONE 10 MG TAB PO (09:40)
[2018-09-21] MEDS: DICLOFENAC SODIUM 1% GEL 100 GM TUBE TP ×4 (09:44→21:53)
[2018-09-21] MEDS: HYDROCODONE/APAP (5/325) TAB PO (11:34)
[2018-09-21] MEDS ORDERED: RIVAROXABAN 15 MG TABLET PO (17:35)
[2018-09-21] MEDS: ONDANSETRON 4 MG INJ IV (20:11)
[2018-09-22] MEDS: HYDROmorphONE 1 MG/ML SYG IV ×3 (00:07→08:20)
[2018-09-22] MEDS: ONDANSETRON 4 MG INJ IV ×2 (00:11→18:02)
[2018-09-22] MEDS: GUAIFENESIN 20 MG/ML 5ML CUP PO (02:12)
[2018-09-22] MEDS: PIPER-TAZO 3.375 GM IV (PMX) 100 ML IVPB ×4 (05:25→23:59)
[2018-09-22 05:42] LABS: ADD MAN DIFF? NO
[2018-09-22 05:48] LABS: ABNORMAL IP MESSAGE 1; BASOPHIL # 0.1 10^3/ul (0.0-0.1); BASOPHILS % 0.4 % (0.0-2.0); EOSINOPHILS # 0.7 10^3/ul (0.0-0.5); EOSINOPHILS % 2.8 % (0.0-7.0); HEMATOCRIT 29.2 % (42.0-52.0); HEMOGLOBIN 9.6 g/dl (14.0-18.0); LYMPHOCYTES % 4.2 % (15.0-51.0); MEAN CORPUSCULAR HEMOGLOBIN 29.2 pg (29.0-33.0); MEAN CORPUSCULAR HGB CONC 32.9 g/dl (32.0-37.0); MEAN CORPUSCULAR VOLUME 88.8 fl (82.0-101.0); MEAN PLATELET VOLUME 9.5 fl (7.4-10.4); MONOCYTE # 1.9 10^3/ul (0.3-0.9); MONOCYTES % 8.3 % (0.0-11.0); NEUTROPHIL # 19.1 10^3/ul (1.6-7.5); NEUTROPHILS % 81.9 % (39.0-77.0); PLATELET COUNT 592 10^3/UL (140-415); POSITIVE DIFF @See below; RED BLOOD COUNT 3.29 10^6/ul (4.70-6.10); RED CELL DISTRIBUTION WIDTH 16.3 % (11.5-14.5)
[2018-09-22 05:48] LABS: WHITE BLOOD COUNT 23.4 10^3/ul (4.8-10.8)
[2018-09-22 06:12] LABS: ANION GAP 10 (5-13); BLOOD UREA NITROGEN 13 mg/dl (7-20); CALCIUM 9.5 mg/dl (8.4-10.2); CARBON DIOXIDE 26 mmol/L (21-31); CHLORIDE 99 mmol/L (97-110); CREATININE 0.75 mg/dl (0.61-1.24); Estimated GFR > 60 mL/min (>60); GLUCOSE 115 mg/dl (70-220); MAGNESIUM 1.8 mg/dl (1.7-2.5); PHOSPHORUS 3.5 mg/dl (2.5-4.9); SODIUM 135 mmol/L (135-144)
[2018-09-22] MEDS: ACETAMINOPHEN 325 MG TAB PO (08:21)
[2018-09-22] MEDS: predniSONE 5 MG TAB PO (08:21)
[2018-09-22] MEDS: DICLOFENAC SODIUM 1% GEL 100 GM TUBE TP ×4 (08:22→21:04)
[2018-09-22] MEDS: BUDESONIDE (NEB) 0.5MG/2ML AMP HHN ×2 (08:30→20:32)
[2018-09-22] MEDS: ALBUTEROL/IPRATROPIUM (NEB) 3 ML AMP HHN ×3 (08:45→20:32)
[2018-09-22] MEDS: HYDROmorphONE 2 MG/ML SYG IV ×3 (12:28→22:03)
[2018-09-22] MEDS: oxyCODONE (CR) 10 MG TAB [oxyCONTIN] PO (21:03)
[2018-09-23] MEDS: HYDROmorphONE 2 MG/ML SYG IV ×5 (02:06→23:54)
[2018-09-23] MEDS: ONDANSETRON 4 MG INJ IV ×4 (02:12→16:53)
[2018-09-23] MEDS: PIPER-TAZO 3.375 GM IV (PMX) 100 ML IVPB ×4 (06:01→23:53)
[2018-09-23 08:23] LABS: ADD MAN DIFF? NO
[2018-09-23 08:29] LABS: WHITE BLOOD COUNT 18.8 10^3/ul (4.8-10.8)
[2018-09-23 08:29] LABS: ABNORMAL IP MESSAGE 1; BASOPHIL # 0.1 10^3/ul (0.0-0.1); BASOPHILS % 0.4 % (0.0-2.0); EOSINOPHILS # 1.3 10^3/ul (0.0-0.5); EOSINOPHILS % 6.6 % (0.0-7.0); HEMOGLOBIN 9.3 g/dl (14.0-18.0); MEAN CORPUSCULAR HEMOGLOBIN 28.7 pg (29.0-33.0); MEAN CORPUSCULAR HGB CONC 32.1 g/dl (32.0-37.0); MEAN CORPUSCULAR VOLUME 89.5 fl (82.0-101.0); MEAN PLATELET VOLUME 9.2 fl (7.4-10.4); MONOCYTE # 1.6 10^3/ul (0.3-0.9); MONOCYTES % 8.3 % (0.0-11.0); NEUTROPHIL # 14.5 10^3/ul (1.6-7.5); PLATELET COUNT 621 10^3/UL (140-415); POSITIVE DIFF @See below; RED BLOOD COUNT 3.24 10^6/ul (4.70-6.10); RED CELL DISTRIBUTION WIDTH 15.9 % (11.5-14.5)
[2018-09-23] MEDS: predniSONE 5 MG TAB PO (08:43)
[2018-09-23] MEDS: oxyCODONE (CR) 10 MG TAB [oxyCONTIN] PO ×2 (08:43→21:21)
[2018-09-23 08:44] LABS: ANION GAP 6 (5-13); BLOOD UREA NITROGEN 14 mg/dl (7-20); CALCIUM 8.8 mg/dl (8.4-10.2); CARBON DIOXIDE 27 mmol/L (21-31); CHLORIDE 103 mmol/L (97-110); CREATININE 0.67 mg/dl (0.61-1.24); Estimated GFR > 60 mL/min (>60); GLUCOSE 102 mg/dl (70-220); MAGNESIUM 1.8 mg/dl (1.7-2.5); PHOSPHORUS 3.7 mg/dl (2.5-4.9); POTASSIUM 4.2 mmol/L (3.5-5.1); SODIUM 136 mmol/L (135-144)
[2018-09-23] MEDS: ALBUTEROL/IPRATROPIUM (NEB) 3 ML AMP HHN ×3 (09:04→19:41)
[2018-09-23] MEDS: BUDESONIDE (NEB) 0.5MG/2ML AMP HHN ×2 (09:14→19:41)
[2018-09-23] MEDS: DICLOFENAC SODIUM 1% GEL 100 GM TUBE TP ×4 (09:52→21:22)
[2018-09-24] MEDS: HYDROmorphONE 2 MG/ML SYG IV (04:06)
[2018-09-24 05:44] LABS: ADD MAN DIFF? NO
[2018-09-24 05:53] LABS: WHITE BLOOD COUNT 16.8 10^3/ul (4.8-10.8)
[2018-09-24 05:53] LABS: BASOPHIL # 0.1 10^3/ul (0.0-0.1); BASOPHILS % 0.5 % (0.0-2.0); EOSINOPHILS # 1.3 10^3/ul (0.0-0.5); EOSINOPHILS % 7.7 % (0.0-7.0); HEMATOCRIT 29.1 % (42.0-52.0); HEMOGLOBIN 9.4 g/dl (14.0-18.0); LYMPHOCYTES # 1.5 10^3/ul (0.8-2.9); LYMPHOCYTES % 8.6 % (15.0-51.0); MEAN CORPUSCULAR HEMOGLOBIN 28.9 pg (29.0-33.0); MEAN CORPUSCULAR HGB CONC 32.3 g/dl (32.0-37.0); MEAN CORPUSCULAR VOLUME 89.5 fl (82.0-101.0); MEAN PLATELET VOLUME 9.5 fl (7.4-10.4); MONOCYTE # 1.4 10^3/ul (0.3-0.9); MONOCYTES % 8.3 % (0.0-11.0); NEUTROPHIL # 11.9 10^3/ul (1.6-7.5); PLATELET COUNT 706 10^3/UL (140-415); RED BLOOD COUNT 3.25 10^6/ul (4.70-6.10); RED CELL DISTRIBUTION WIDTH 15.9 % (11.5-14.5)
[2018-09-24] MEDS: PIPER-TAZO 3.375 GM IV (PMX) 100 ML IVPB (05:59)
[2018-09-24 06:20] LABS: ANION GAP 11 (5-13); BLOOD UREA NITROGEN 16 mg/dl (7-20); CALCIUM 9.2 mg/dl (8.4-10.2); CARBON DIOXIDE 25 mmol/L (21-31); CHLORIDE 102 mmol/L (97-110); CREATININE 0.69 mg/dl (0.61-1.24); Estimated GFR > 60 mL/min (>60); GLUCOSE 95 mg/dl (70-220); MAGNESIUM 1.8 mg/dl (1.7-2.5); PHOSPHORUS 4.2 mg/dl (2.5-4.9); POTASSIUM 4.1 mmol/L (3.5-5.1); SODIUM 138 mmol/L (135-144)
[2018-09-24] MEDS: ALBUTEROL/IPRATROPIUM (NEB) 3 ML AMP HHN (07:53)
[2018-09-24] MEDS: BUDESONIDE (NEB) 0.5MG/2ML AMP HHN (07:53)
[2018-09-24] MEDS: oxyCODONE (CR) 10 MG TAB [oxyCONTIN] PO (08:11)
[2018-09-24] MEDS: predniSONE 5 MG TAB PO (08:11)
[2018-09-24] MEDS: DICLOFENAC SODIUM 1% GEL 100 GM TUBE TP ×4 (08:11→20:40)
[2018-09-24] MEDS: FLUTICASONE/VILANTEROL 100-25 INH (13:59)
[2018-09-24] MEDS: LEVOFLOXACIN 500 MG TAB PO (13:59)
[2018-09-24] MEDS: OXYCODONE/ACETAMINOPHEN (5/325) TAB PO ×2 (13:59→18:57)
[2018-09-24] MEDS: TIOTROPIUM 18 MCG CAPSULE INHA DEV INH (13:59)
[2018-09-24] MEDS: KETOROLAC 30 MG INJ IV ×2 (16:13→22:05)
[2018-09-24] MEDS: RIVAROXABAN 15 MG TABLET PO (17:28)
[2018-09-25] MEDS: OXYCODONE/ACETAMINOPHEN (5/325) TAB PO ×2 (00:27→06:28)
[2018-09-25] MEDS: KETOROLAC 30 MG INJ IV (03:50)
[2018-09-25 06:18] LABS: ADD MAN DIFF? NO
[2018-09-25 06:20] LABS: ABNORMAL IP MESSAGE 1; BASOPHIL # 0.1 10^3/ul (0.0-0.1); BASOPHILS % 0.9 % (0.0-2.0); EOSINOPHILS # 1.4 10^3/ul (0.0-0.5); EOSINOPHILS % 9.9 % (0.0-7.0); HEMOGLOBIN 9.9 g/dl (14.0-18.0); LYMPHOCYTES # 1.6 10^3/ul (0.8-2.9); LYMPHOCYTES % 11.1 % (15.0-51.0); MEAN CORPUSCULAR HEMOGLOBIN 28.4 pg (29.0-33.0); MEAN CORPUSCULAR HGB CONC 31.9 g/dl (32.0-37.0); MEAN CORPUSCULAR VOLUME 88.8 fl (82.0-101.0); MONOCYTE # 1.6 10^3/ul (0.3-0.9); MONOCYTES % 11.6 % (0.0-11.0); NEUTROPHIL # 8.7 10^3/ul (1.6-7.5); NEUTROPHILS % 62.5 % (39.0-77.0); PLATELET COUNT 574 10^3/UL (140-415); POSITIVE DIFF @See below; RED BLOOD COUNT 3.49 10^6/ul (4.70-6.10); RED CELL DISTRIBUTION WIDTH 16.1 % (11.5-14.5)
[2018-09-25] MEDS: LEVOFLOXACIN 500 MG TAB PO (06:27)
[2018-09-25 06:44] LABS: ANION GAP 8 (5-13); BLOOD UREA NITROGEN 23 mg/dl (7-20); CALCIUM 8.6 mg/dl (8.4-10.2); CARBON DIOXIDE 23 mmol/L (21-31); CHLORIDE 107 mmol/L (97-110); CREATININE 0.66 mg/dl (0.61-1.24); Estimated GFR > 60 mL/min (>60); GLUCOSE 84 mg/dl (70-220); MAGNESIUM 1.9 mg/dl (1.7-2.5); PHOSPHORUS 4.7 mg/dl (2.5-4.9); POTASSIUM 4.9 mmol/L (3.5-5.1); SODIUM 138 mmol/L (135-144)
[2018-09-25] MEDS: RIVAROXABAN 15 MG TABLET PO ×2 (09:15→18:00)
[2018-09-25] MEDS: FLUTICASONE/VILANTEROL 100-25 INH (09:16)
[2018-09-25] MEDS: DICLOFENAC SODIUM 1% GEL 100 GM TUBE TP ×4 (09:16→22:06)
[2018-09-25] MEDS: HYDROmorphONE 1 MG/ML SYG IV ×4 (09:16→22:06)
[2018-09-25] MEDS: TIOTROPIUM 18 MCG CAPSULE INHA DEV INH (09:17)
[2018-09-25] MEDS: ONDANSETRON 4 MG INJ IV ×2 (09:30→22:11)
[2018-09-26] MEDS: HYDROmorphONE 1 MG/ML SYG IV ×6 (01:59→23:11)
[2018-09-26] MEDS: ONDANSETRON 4 MG INJ IV ×4 (02:02→15:09)
[2018-09-26] MEDS: LEVOFLOXACIN 500 MG TAB PO (05:07)
[2018-09-26 06:02] LABS: ADD MAN DIFF? NO
[2018-09-26 06:08] LABS: ABNORMAL IP MESSAGE 1; BASOPHIL # 0.1 10^3/ul (0.0-0.1); BASOPHILS % 0.6 % (0.0-2.0); EOSINOPHILS # 1.2 10^3/ul (0.0-0.5); EOSINOPHILS % 6.8 % (0.0-7.0); HEMATOCRIT 23.5 % (42.0-52.0); HEMOGLOBIN 7.5 g/dl (14.0-18.0); LYMPHOCYTES # 1.5 10^3/ul (0.8-2.9); LYMPHOCYTES % 8.5 % (15.0-51.0); MEAN CORPUSCULAR HEMOGLOBIN 28.5 pg (29.0-33.0); MEAN CORPUSCULAR HGB CONC 31.9 g/dl (32.0-37.0); MEAN CORPUSCULAR VOLUME 89.4 fl (82.0-101.0); MEAN PLATELET VOLUME 9.3 fl (7.4-10.4); MONOCYTE # 1.4 10^3/ul (0.3-0.9); NEUTROPHILS % 69.3 % (39.0-77.0); PLATELET COUNT 624 10^3/UL (140-415); POSITIVE DIFF @See below; RED BLOOD COUNT 2.63 10^6/ul (4.70-6.10); RED CELL DISTRIBUTION WIDTH 15.9 % (11.5-14.5)
[2018-09-26 06:08] LABS: WHITE BLOOD COUNT 17.4 10^3/ul (4.8-10.8)
[2018-09-26 06:35] LABS: ANION GAP 7 (5-13); BLOOD UREA NITROGEN 30 mg/dl (7-20); CALCIUM 8.8 mg/dl (8.4-10.2); CARBON DIOXIDE 26 mmol/L (21-31); CHLORIDE 103 mmol/L (97-110); CREATININE 0.59 mg/dl (0.61-1.24); Estimated GFR > 60 mL/min (>60); GLUCOSE 107 mg/dl (70-220); MAGNESIUM 1.7 mg/dl (1.7-2.5); PHOSPHORUS 3.5 mg/dl (2.5-4.9); POTASSIUM 4.3 mmol/L (3.5-5.1); SODIUM 136 mmol/L (135-144)
[2018-09-26] MEDS: DICLOFENAC SODIUM 1% GEL 100 GM TUBE TP ×4 (08:43→20:28)
[2018-09-26] MEDS: FLUTICASONE/VILANTEROL 100-25 INH (08:43)
[2018-09-26] MEDS: RIVAROXABAN 15 MG TABLET PO ×2 (08:43→17:28)
[2018-09-26] MEDS: TIOTROPIUM 18 MCG CAPSULE INHA DEV INH (08:44)
[2018-09-26] MEDS: KETOROLAC 30 MG INJ IV ×3 (09:41→22:12)
[2018-09-26] MEDS: OXYCODONE/ACETAMINOPHEN (5/325) TAB PO (17:37)
[2018-09-27] MEDS: HYDROmorphONE 1 MG/ML SYG IV ×5 (03:22→20:52)
[2018-09-27] MEDS: KETOROLAC 30 MG INJ IV ×2 (04:48→13:47)
[2018-09-27] MEDS: LEVOFLOXACIN 500 MG TAB PO (05:56)
[2018-09-27 07:14] LABS: ABNORMAL IP MESSAGE 1; HEMATOCRIT 13.3 % (42.0-52.0); MEAN CORPUSCULAR HEMOGLOBIN 29.1 pg (29.0-33.0); MEAN CORPUSCULAR HGB CONC 32.3 g/dl (32.0-37.0); MEAN CORPUSCULAR VOLUME 89.9 fl (82.0-101.0); MEAN PLATELET VOLUME 9.5 fl (7.4-10.4); PLATELET COUNT 502 10^3/UL (140-415); POSITIVE DIFF @See below; RED BLOOD COUNT 1.48 10^6/ul (4.70-6.10); RED CELL DISTRIBUTION WIDTH 15.9 % (11.5-14.5)
[2018-09-27 07:14] LABS: WHITE BLOOD COUNT 23.5 10^3/ul (4.8-10.8)
[2018-09-27 07:34] LABS: ANION GAP 9 (5-13); BLOOD UREA NITROGEN 50 mg/dl (7-20); CALCIUM 8.4 mg/dl (8.4-10.2); CARBON DIOXIDE 24 mmol/L (21-31); CHLORIDE 105 mmol/L (97-110); CREATININE 0.67 mg/dl (0.61-1.24); Estimated GFR > 60 mL/min (>60); GLUCOSE 131 mg/dl (70-220); MAGNESIUM 1.9 mg/dl (1.7-2.5); PHOSPHORUS 4.7 mg/dl (2.5-4.9); POTASSIUM 4.1 mmol/L (3.5-5.1); SODIUM 138 mmol/L (135-144)
[2018-09-27 07:50] LABS: ADD MAN DIFF? YES; HEMOGLOBIN 4.3 g/dl (14.0-18.0); PATH REVIEW? YES
[2018-09-27] MEDS: DICLOFENAC SODIUM 1% GEL 100 GM TUBE TP ×4 (08:58→21:00)
[2018-09-27] MEDS: FLUTICASONE/VILANTEROL 100-25 INH (08:58)
[2018-09-27] MEDS: TIOTROPIUM 18 MCG CAPSULE INHA DEV INH (08:58)
[2018-09-27] MEDS: ONDANSETRON 4 MG INJ IV (09:20)
[2018-09-27 10:00] LABS: HEMATOCRIT 13.5 % (42.0-52.0)
[2018-09-27 10:29] LABS: HEMOGLOBIN 4.3 g/dl (14.0-18.0)
[2018-09-27 10:41] LABS: ANISOCYTOSIS 2+ (0-0); BAND NEUTROPHILS #M 0.7 10^3/ul (0.0-0.6); BAND NEUTROPHILS % (M) 3 % (0-4); BASOPHIL #M 0.2 10^3/ul (0.0-0.0); BASOPHILS % (M) 1 % (0-2); EOSINOPHILS % (M) 3 % (0-7); ERYTHROBLAST% (NRBC) (M) 1 % (0-0); HYPOCHROMASIA 1+ (0-0); LYMPHOCYTES #M 2.3 10^3/ul (0.8-2.9); LYMPHOCYTES % (M) 10 % (15-51); MONOCYTE #M 0.9 10^3/ul (0.3-0.9); MONOCYTES % (M) 4 % (0-11); PLATELET ESTIMATE NORMAL; POIKILOCYTOSIS 1+ (0-0); POLYCHROMASIA 3+ (0-0); SEG NEUT #M 18.3 10^3/ul (1.6-7.5); SEGMENTED NEUTROPHILS (M) % 77 % (39-77); SMUDGE%M 5 % (0-0); TARGET CELLS 1+ (0-0)
[2018-09-27] MEDS: SOD CHLORIDE 0.9% 250 ML IV* ×2 (11:27→22:53)
[2018-09-27 20:42] LABS: HEMATOCRIT 19.3 % (42.0-52.0)
[2018-09-27 20:52] LABS: HEMOGLOBIN 6.6 g/dl (14.0-18.0)
[2018-09-28] MEDS: HYDROmorphONE 1 MG/ML SYG IV ×6 (00:43→21:49)
[2018-09-28] MEDS: ALBUTEROL/IPRATROPIUM (NEB) 3 ML AMP HHN (01:33)
[2018-09-28] MEDS: LEVOFLOXACIN 500 MG TAB PO (06:16)
[2018-09-28] MEDS: OXYCODONE/ACETAMINOPHEN (5/325) TAB PO (07:29)
[2018-09-28] MEDS: TIOTROPIUM 18 MCG CAPSULE INHA DEV INH (08:54)
[2018-09-28] MEDS: DICLOFENAC SODIUM 1% GEL 100 GM TUBE TP ×4 (08:55→20:49)
[2018-09-28] MEDS: FLUTICASONE/VILANTEROL 100-25 INH (08:55)
[2018-09-28 09:02] LABS: ABNORMAL IP MESSAGE 1; HEMATOCRIT 21.8 % (42.0-52.0); HEMOGLOBIN 7.3 g/dl (14.0-18.0); MEAN CORPUSCULAR HEMOGLOBIN 30.4 pg (29.0-33.0); MEAN CORPUSCULAR HGB CONC 33.5 g/dl (32.0-37.0); MEAN CORPUSCULAR VOLUME 90.8 fl (82.0-101.0); MEAN PLATELET VOLUME 9.6 fl (7.4-10.4); NUCLEATED RED BLOOD CELLS% 0.1 /100WBC (0.0-0.0); PLATELET COUNT 442 10^3/UL (140-415); POSITIVE DIFF @See below; RED CELL DISTRIBUTION WIDTH 14.3 % (11.5-14.5)
[2018-09-28 09:02] LABS: WHITE BLOOD COUNT 22.2 10^3/ul (4.8-10.8)
[2018-09-28 09:06] LABS: ADD MAN DIFF? YES
[2018-09-28 09:37] LABS: EOSINOPHILS % (M) 13 % (0-7); GIANT THROMBO% (M) 1 % (0-0); LYMPHOCYTES #M 0.6 10^3/ul (0.8-2.9); LYMPHOCYTES % (M) 3 % (15-51); MONOCYTE #M 1.5 10^3/ul (0.3-0.9); MONOCYTES % (M) 7 % (0-11); MYELOCYTES #M 0.8 10^3/ul (0.0-0.0); MYELOCYTES % (M) 4 % (0-0); PLATELET ESTIMATE INCREASED; POLYCHROMASIA 3+ (0-0); PROMYELOCYTES #M 0.2 10^3/ul (0-0); PROMYELOCYTES % (M) 1 % (0-0); SEGMENTED NEUTROPHILS (M) % 72 % (39-77); SMUDGE%M 20 % (0-0)
[2018-09-28 13:26] LABS: IMMEDIATE SPIN CROSSMATCH 1 4
[2018-09-28] MEDS: ONDANSETRON 4 MG INJ IV ×2 (17:57→21:55)
[2018-09-29] MEDS: HYDROmorphONE 1 MG/ML SYG IV ×6 (01:49→22:00)
[2018-09-29] MEDS: ONDANSETRON 4 MG INJ IV ×4 (01:56→14:01)
[2018-09-29] MEDS: GUAIFENESIN 20 MG/ML 5ML CUP PO (01:56)
[2018-09-29] MEDS: LEVOFLOXACIN 500 MG TAB PO (05:49)
[2018-09-29] MEDS: FLUTICASONE/VILANTEROL 100-25 INH (08:20)
[2018-09-29] MEDS: DICLOFENAC SODIUM 1% GEL 100 GM TUBE TP ×4 (08:20→22:01)
[2018-09-29] MEDS: TIOTROPIUM 18 MCG CAPSULE INHA DEV INH (09:54)
[2018-09-29 10:53] LABS: HEMATOCRIT 22.4 % (42.0-52.0); HEMOGLOBIN 7.5 g/dl (14.0-18.0)
[2018-09-30] MEDS: HYDROmorphONE 1 MG/ML SYG IV ×6 (02:08→22:27)
[2018-09-30] MEDS: LEVOFLOXACIN 500 MG TAB PO (06:06)
[2018-09-30 06:21] LABS: ADD MAN DIFF? NO
[2018-09-30 06:30] LABS: WHITE BLOOD COUNT 22.1 10^3/ul (4.8-10.8)
[2018-09-30 06:30] LABS: ABNORMAL IP MESSAGE 1; BASOPHIL # 0.1 10^3/ul (0.0-0.1); BASOPHILS % 0.6 % (0.0-2.0); EOSINOPHILS # 1.4 10^3/ul (0.0-0.5); EOSINOPHILS % 6.5 % (0.0-7.0); HEMATOCRIT 23.7 % (42.0-52.0); HEMOGLOBIN 7.8 g/dl (14.0-18.0); LYMPHOCYTES % 9.1 % (15.0-51.0); MEAN CORPUSCULAR HEMOGLOBIN 30.4 pg (29.0-33.0); MEAN CORPUSCULAR HGB CONC 32.9 g/dl (32.0-37.0); MEAN CORPUSCULAR VOLUME 92.2 fl (82.0-101.0); MEAN PLATELET VOLUME 9.2 fl (7.4-10.4); MONOCYTE # 1.5 10^3/ul (0.3-0.9); MONOCYTES % 6.7 % (0.0-11.0); NEUTROPHIL # 14.8 10^3/ul (1.6-7.5); NEUTROPHILS % 66.9 % (39.0-77.0); PLATELET COUNT 602 10^3/UL (140-415); POSITIVE DIFF @See below; RED BLOOD COUNT 2.57 10^6/ul (4.70-6.10); RED CELL DISTRIBUTION WIDTH 15.4 % (11.5-14.5)
[2018-09-30] MEDS: TIOTROPIUM 18 MCG CAPSULE INHA DEV INH ×2 (09:00→11:32)
[2018-09-30] MEDS: FLUTICASONE/VILANTEROL 100-25 INH (09:20)
[2018-09-30] MEDS: DICLOFENAC SODIUM 1% GEL 100 GM TUBE TP ×4 (09:21→20:16)
[2018-09-30] MEDS: FERROUS SULFATE (EC) 325 MG TAB PO (09:21)
[2018-09-30] MEDS ORDERED: RIVAROXABAN 15 MG TABLET PO (09:30)
[2018-09-30 10:08] LABS: ANISOCYTOSIS 1+ (0-0); BAND NEUTROPHILS #M 1.9 10^3/ul (0.0-0.6); BAND NEUTROPHILS % (M) 9 % (0-4); BASOPHIL #M 0.4 10^3/ul (0.0-0.0); BASOPHILS % (M) 2 % (0-2); EOSINOPHILS % (M) 5 % (0-7); HYPOCHROMASIA 2+ (0-0); LYMPHOCYTES #M 1.5 10^3/ul (0.8-2.9); LYMPHOCYTES % (M) 7 % (15-51); METAMYELOCYTES #M 0.4 10^3/ul (0.0-0.0); METAMYELOCYTES %M 2 % (0-0); MICROCYTOSIS 1+ (0-0); MONOCYTE #M 0.8 10^3/ul (0.3-0.9); MONOCYTES % (M) 4 % (0-11); MYELOCYTES #M 0.6 10^3/ul (0.0-0.0); MYELOCYTES % (M) 3 % (0-0); PLATELET ESTIMATE INCREASED; POLYCHROMASIA 2+ (0-0); PROMYELOCYTES #M 0.2 10^3/ul (0-0); PROMYELOCYTES % (M) 1 % (0-0); SEG NEUT #M 15.2 10^3/ul (1.6-7.5); SEGMENTED NEUTROPHILS (M) % 67 % (39-77)
[2018-09-30] MEDS: RIVAROXABAN 20 MG TABLET PO (20:17)
[2018-10-01] MEDS: ALBUTEROL/IPRATROPIUM (NEB) 3 ML AMP HHN (00:36)
[2018-10-01] MEDS: HYDROmorphONE 1 MG/ML SYG IV ×2 (02:39→07:00)
[2018-10-01] MEDS ORDERED: LEVOFLOXACIN 500 MG TAB PO (06:00)
[2018-10-01] MEDS: FERROUS SULFATE (EC) 325 MG TAB PO (08:18)
[2018-10-01] MEDS: OXYCODONE/ACETAMINOPHEN (5/325) TAB PO (08:19)
[2018-10-01] MEDS: FLUTICASONE/VILANTEROL 100-25 INH (08:21)
[2018-10-01] MEDS: DICLOFENAC SODIUM 1% GEL 100 GM TUBE TP (08:21)
[2018-10-01] MEDS: TIOTROPIUM 18 MCG CAPSULE INHA DEV INH (09:00)
== END 2018-10-01 09:20 | disposition left against medical advice (07) | DRG 163 ==
LOC: 2NE 09-21 14:45 → ICU 09-20 12:37 → E/R 19:46 → 6WM 09-09 00:05
PROC: 0BCK4ZZ Extirpation of Matter from Right Lung, Percutaneous Endoscopic Approach (ICD-10-PCS; principal; 2018-09-20 11:52)
PROC: 0W9930Z Drainage of Right Pleural Cavity with Drainage Device, Percutaneous Approach (ICD-10-PCS; 2018-09-20 11:52)
PROC: 30233N1 Transfusion of Nonautologous Red Blood Cells into Peripheral Vein, Percutaneous Approach (ICD-10-PCS; 2018-09-20 11:52)
DX: S27.0XXA Traumatic pneumothorax, initial encounter (principal); J18.9 Pneumonia, unspecified organism; J93.12 Secondary spontaneous pneumothorax; I27.82 Chronic pulmonary embolism; I82.502 Chronic embolism and thrombosis of unspecified deep veins of left lower extremity; R65.10 Systemic inflammatory response syndrome (SIRS) of non-infectious origin without acute organ dysfunction; E46 Unspecified protein-calorie malnutrition; J90 Pleural effusion, not elsewhere classified; J92.9 Pleural plaque without asbestos; J43.9 Emphysema, unspecified; D64.9 Anemia, unspecified; Z86.711 Personal history of pulmonary embolism; Z86.718 Personal history of other venous thrombosis and embolism; E87.6 Hypokalemia; J44.9 Chronic obstructive pulmonary disease, unspecified; X58.XXXA Exposure to other specified factors, initial encounter; Z91.14 Patient's other noncompliance with medication regimen; Z79.01 Long term (current) use of anticoagulants; J98.4 Other disorders of lung; R50.9 Fever, unspecified; Z59.0 Homelessness; Z87.891 Personal history of nicotine dependence; F44.9 Dissociative and conversion disorder, unspecified; Z68.21 Body mass index [BMI] 21.0-21.9, adult
CPT/HCPCS: 36415; 36430; 71045; 71275; 80048; 80053; 80069; 80202; 81003; 82962; 83605; 83735; 83880; 84100; 84132; 85014; 85018; 85025; 85049; 85610; 85670; 85730; 86644; 86850; 86900; 86901; 86920; 86945; 87040; 87070; 87102; 87116; 88307; 88331; 93306; 93970; 93971; 94640; 94664; 94770; 96374; 97161; 99285-25

== ENCOUNTER 2018-10-18 17:40 | Inpatient (IN) | payer OTHER ==
[2018-10-18 19:52] LABS: ADD MAN DIFF? NO
[2018-10-18] MEDS: IBUPROFEN 600 MG TAB PO (19:56)
[2018-10-18 19:58] LABS: WHITE BLOOD COUNT 13.1 10^3/ul (4.8-10.8)
[2018-10-18 19:58] LABS: BASOPHIL # 0.1 10^3/ul (0.0-0.1); BASOPHILS % 0.8 % (0.0-2.0); EOSINOPHILS # 0.3 10^3/ul (0.0-0.5); EOSINOPHILS % 1.9 % (0.0-7.0); HEMATOCRIT 32.1 % (42.0-52.0); HEMOGLOBIN 9.9 g/dl (14.0-18.0); LYMPHOCYTES # 1.7 10^3/ul (0.8-2.9); LYMPHOCYTES % 12.6 % (15.0-51.0); MEAN CORPUSCULAR HEMOGLOBIN 27.4 pg (29.0-33.0); MEAN CORPUSCULAR HGB CONC 30.8 g/dl (32.0-37.0); MEAN CORPUSCULAR VOLUME 88.9 fl (82.0-101.0); MEAN PLATELET VOLUME 8.1 fl (7.4-10.4); MONOCYTES % 7.3 % (0.0-11.0); NEUTROPHIL # 9.5 10^3/ul (1.6-7.5); NEUTROPHILS % 72.4 % (39.0-77.0); PLATELET COUNT 792 10^3/UL (140-415); RED BLOOD COUNT 3.61 10^6/ul (4.70-6.10); RED CELL DISTRIBUTION WIDTH 16.4 % (11.5-14.5)
[2018-10-18 20:17] LABS: ANION GAP 9 (5-13); BLOOD UREA NITROGEN 22 mg/dl (7-20); CALCIUM 9.2 mg/dl (8.4-10.2); CARBON DIOXIDE 26 mmol/L (21-31); CHLORIDE 103 mmol/L (97-110); CREATININE 0.86 mg/dl (0.61-1.24); Estimated GFR > 60 mL/min (>60); GLUCOSE 90 mg/dl (70-220); POTASSIUM 4.1 mmol/L (3.5-5.1); SODIUM 138 mmol/L (135-144)
[2018-10-18 20:27] LABS: LIPASE 198 U/L (23-300)
[2018-10-18 20:27] LABS: INR 0.96; PROTIME 12.9 Sec (11.9-14.9)
[2018-10-18 20:28] LABS: PARTIAL THROMBOPLASTIN TIME 31.4 Sec (23.0-35.0)
[2018-10-18 20:40] LABS: TROPONIN-I < 0.012 ng/ml (0.000-0.120)
[2018-10-18] MEDS: SOD CHLORIDE 0.9% 1,000 ML IV (20:47)
[2018-10-18] MEDS: CEFTRIAXONE 1 GM/50 ML (PMX) 50 ML IVPB (20:47)
[2018-10-18] MEDS: KETOROLAC 15 MG INJ IV (20:54)
[2018-10-18] MEDS: OXYCODONE/ACETAMINOPHEN (5/325) TAB PO (20:54)
[2018-10-18] MEDS: PIPER-TAZO 3.375 GM IV (PMX) 100 ML IVPB (21:20)
[2018-10-18] MEDS ORDERED: ONDANSETRON 4 MG INJ IV (23:00)
[2018-10-18] MEDS ORDERED: NACL 0.9% 3 ML SYG IV (23:00)
[2018-10-18] MEDS ORDERED: ALBUTEROL/IPRATROPIUM (NEB) 3 ML AMP HHN (23:00)
[2018-10-18] MEDS: HYDROCODONE/APAP (5/325) TAB PO (23:43)
[2018-10-19] MEDS ORDERED: HYDROCODONE/APAP (5/325) TAB PO (04:30)
[2018-10-19] MEDS: HYDROCODONE/APAP (5/325) TAB PO ×2 (04:31→08:15)
[2018-10-19 05:35] LABS: ADD MAN DIFF? NO
[2018-10-19 05:54] LABS: ALANINE AMINOTRANSFERASE 21 IU/L (13-69); ALBUMIN 3.2 g/dl (3.3-4.9); ALBUMIN/GLOBULIN RATIO 1.03; ALKALINE PHOSPHATASE 88 IU/L (42-121); ANION GAP 8 (5-13); ASPARTATE AMINO TRANSFERASE 17 IU/L (15-46); BLOOD UREA NITROGEN 22 mg/dl (7-20); CALCIUM 8.5 mg/dl (8.4-10.2); CARBON DIOXIDE 26 mmol/L (21-31); CHLORIDE 105 mmol/L (97-110); CREATININE 0.81 mg/dl (0.61-1.24); Estimated GFR > 60 mL/min (>60); GLUCOSE 100 mg/dl (70-220); SODIUM 139 mmol/L (135-144); TOTAL PROTEIN 6.3 g/dl (6.1-8.1)
[2018-10-19 06:07] LABS: WHITE BLOOD COUNT 11.7 10^3/ul (4.8-10.8)
[2018-10-19 06:07] LABS: BASOPHIL # 0.1 10^3/ul (0.0-0.1); BASOPHILS % 0.7 % (0.0-2.0); EOSINOPHILS # 0.5 10^3/ul (0.0-0.5); EOSINOPHILS % 4.4 % (0.0-7.0); HEMATOCRIT 27.8 % (42.0-52.0); HEMOGLOBIN 8.4 g/dl (14.0-18.0); LYMPHOCYTES # 1.6 10^3/ul (0.8-2.9); LYMPHOCYTES % 13.6 % (15.0-51.0); MEAN CORPUSCULAR HEMOGLOBIN 26.9 pg (29.0-33.0); MEAN CORPUSCULAR HGB CONC 30.2 g/dl (32.0-37.0); MEAN CORPUSCULAR VOLUME 89.1 fl (82.0-101.0); MEAN PLATELET VOLUME 8.4 fl (7.4-10.4); MONOCYTE # 1.1 10^3/ul (0.3-0.9); MONOCYTES % 9.4 % (0.0-11.0); NEUTROPHIL # 7.8 10^3/ul (1.6-7.5); NEUTROPHILS % 66.9 % (39.0-77.0); PLATELET COUNT 713 10^3/UL (140-415); RED BLOOD COUNT 3.12 10^6/ul (4.70-6.10); RED CELL DISTRIBUTION WIDTH 16.7 % (11.5-14.5)
[2018-10-19] MEDS ORDERED: INFLUENZA VIRUS VACCINE 0.5 ML (DISPENSING) IM* (10:00)
[2018-10-19] MEDS: OXYCODONE/ACETAMINOPHEN (10/325) TAB PO ×2 (11:41→17:43)
[2018-10-19] MEDS: LIDOCAINE 1% (MPF) 5 ML VIAL (16:24)
[2018-10-19] MEDS: KETOROLAC 30 MG INJ IV (19:57)
[2018-10-20] MEDS: KETOROLAC 30 MG INJ IV ×3 (01:48→12:46)
[2018-10-20] MEDS: morphine LIQ (20 MG/ML PO SYG) PO ×3 (05:38→22:19)
[2018-10-20 06:03] LABS: ADD MAN DIFF? NO
[2018-10-20 06:16] LABS: ABNORMAL IP MESSAGE 1; BASOPHIL # 0.1 10^3/ul (0.0-0.1); BASOPHILS % 0.8 % (0.0-2.0); EOSINOPHILS # 0.4 10^3/ul (0.0-0.5); EOSINOPHILS % 3.5 % (0.0-7.0); HEMOGLOBIN 8.8 g/dl (14.0-18.0); LYMPHOCYTES # 1.6 10^3/ul (0.8-2.9); LYMPHOCYTES % 14.5 % (15.0-51.0); MEAN CORPUSCULAR HEMOGLOBIN 27.5 pg (29.0-33.0); MEAN CORPUSCULAR HGB CONC 30.3 g/dl (32.0-37.0); MEAN CORPUSCULAR VOLUME 90.6 fl (82.0-101.0); MEAN PLATELET VOLUME 8.3 fl (7.4-10.4); MONOCYTE # 1.2 10^3/ul (0.3-0.9); MONOCYTES % 10.5 % (0.0-11.0); NEUTROPHIL # 7.1 10^3/ul (1.6-7.5); NEUTROPHILS % 64.9 % (39.0-77.0); POSITIVE DIFF @See below; RED CELL DISTRIBUTION WIDTH 16.2 % (11.5-14.5)
[2018-10-20 06:16] LABS: WHITE BLOOD COUNT 10.9 10^3/ul (4.8-10.8)
[2018-10-20 06:21] LABS: PLATELET COUNT 692 10^3/UL (140-415)
[2018-10-20 07:09] LABS: ALANINE AMINOTRANSFERASE 21 IU/L (13-69); ALBUMIN 3.3 g/dl (3.3-4.9); ALBUMIN/GLOBULIN RATIO 1.06; ALKALINE PHOSPHATASE 80 IU/L (42-121); ANION GAP 8 (5-13); ASPARTATE AMINO TRANSFERASE 18 IU/L (15-46); BLOOD UREA NITROGEN 14 mg/dl (7-20); CALCIUM 8.6 mg/dl (8.4-10.2); CARBON DIOXIDE 26 mmol/L (21-31); CHLORIDE 103 mmol/L (97-110); CREATININE 0.77 mg/dl (0.61-1.24); Estimated GFR > 60 mL/min (>60); GLUCOSE 101 mg/dl (70-220); MAGNESIUM 1.7 mg/dl (1.7-2.5); POTASSIUM 4.1 mmol/L (3.5-5.1); SODIUM 137 mmol/L (135-144); TOTAL PROTEIN 6.4 g/dl (6.1-8.1)
[2018-10-20 07:14] LABS: IRON 22 ug/dl (35-150)
[2018-10-20 07:23] LABS: THYROID STIMULATING HORMONE 0.941 MIU/L (0.465-4.680)
[2018-10-20 08:24] LABS: BASOPHIL #M 0.2 10^3/ul (0.0-0.0); BASOPHILS % (M) 2 % (0-2); EOSINOPHILS % (M) 7 % (0-7); GIANT THROMBO% (M) 1 % (0-0); LYMPHOCYTES #M 1.3 10^3/ul (0.8-2.9); LYMPHOCYTES % (M) 12 % (15-51); METAMYELOCYTES #M 0.1 10^3/ul (0.0-0.0); METAMYELOCYTES %M 1 % (0-0); MICROCYTOSIS 1+ (0-0); MONOCYTE #M 1.3 10^3/ul (0.3-0.9); MONOCYTES % (M) 12 % (0-11); MYELOCYTES #M 0.4 10^3/ul (0.0-0.0); MYELOCYTES % (M) 4 % (0-0); OVALOCYTES 1+ (0-0); PLATELET ESTIMATE INCREASED; POLYCHROMASIA 1+ (0-0); SEGMENTED NEUTROPHILS (M) % 62 % (39-77); SMUDGE%M 5 % (0-0)
[2018-10-20 09:25] LABS: OCCULT BLOOD STOOL NEGATIVE (NEGATIVE)
[2018-10-20 09:29] LABS: % IRON SATURATION 7 % SAT (22-52); TOTAL IRON BINDING CAPACITY 321 ug/dl (241-421)
[2018-10-20] MEDS: OXYCODONE/ACETAMINOPHEN (10/325) TAB PO ×2 (15:58→20:41)
[2018-10-21 06:34] LABS: ADD MAN DIFF? NO
[2018-10-21 06:37] LABS: WHITE BLOOD COUNT 10.6 10^3/ul (4.8-10.8)
[2018-10-21 06:37] LABS: BASOPHIL # 0.1 10^3/ul (0.0-0.1); BASOPHILS % 0.9 % (0.0-2.0); EOSINOPHILS # 0.7 10^3/ul (0.0-0.5); EOSINOPHILS % 6.9 % (0.0-7.0); HEMATOCRIT 29.3 % (42.0-52.0); HEMOGLOBIN 8.8 g/dl (14.0-18.0); LYMPHOCYTES # 1.2 10^3/ul (0.8-2.9); LYMPHOCYTES % 11.4 % (15.0-51.0); MEAN CORPUSCULAR HEMOGLOBIN 27.4 pg (29.0-33.0); MEAN CORPUSCULAR VOLUME 91.3 fl (82.0-101.0); MEAN PLATELET VOLUME 8.3 fl (7.4-10.4); MONOCYTE # 0.9 10^3/ul (0.3-0.9); MONOCYTES % 8.7 % (0.0-11.0); NEUTROPHIL # 7.2 10^3/ul (1.6-7.5); NEUTROPHILS % 67.8 % (39.0-77.0); PLATELET COUNT 706 10^3/UL (140-415); RED BLOOD COUNT 3.21 10^6/ul (4.70-6.10); RED CELL DISTRIBUTION WIDTH 16.5 % (11.5-14.5)
[2018-10-21 06:59] LABS: ANION GAP 7 (5-13); BLOOD UREA NITROGEN 15 mg/dl (7-20); CALCIUM 8.8 mg/dl (8.4-10.2); CARBON DIOXIDE 26 mmol/L (21-31); CHLORIDE 106 mmol/L (97-110); CREATININE 0.68 mg/dl (0.61-1.24); Estimated GFR > 60 mL/min (>60); GLUCOSE 92 mg/dl (70-220); POTASSIUM 4.6 mmol/L (3.5-5.1); SODIUM 139 mmol/L (135-144)
[2018-10-21] MEDS: morphine LIQ (20 MG/ML PO SYG) PO ×3 (09:31→22:56)
[2018-10-21] MEDS: OXYCODONE/ACETAMINOPHEN (10/325) TAB PO ×2 (13:13→20:27)
[2018-10-21] MEDS ORDERED: DOCUSATE SODIUM 100 MG CAP PO (15:00)
[2018-10-21] MEDS ORDERED: VANCOMYCIN IV PER PHARMACY XX (16:00)
[2018-10-21] MEDS: VANCOMYCIN 1.25 GM in SOD CHLORIDE 0.9% 250 ML IVPB (17:45)
[2018-10-22] MEDS: OXYCODONE/ACETAMINOPHEN (10/325) TAB PO (01:54)
[2018-10-22] MEDS: VANCOMYCIN 1 GM 250 ML IVPB ×3 (01:54→17:15)
[2018-10-22] MEDS: morphine LIQ (20 MG/ML PO SYG) PO ×4 (03:05→17:15)
[2018-10-22] MEDS: FAMOTIDINE 20 MG TAB PO (08:59)
[2018-10-22] MEDS ORDERED: HEPARIN 5,000 UNIT/0.5 ML VIAL ×2 (13:27→20:47)
[2018-10-22] MEDS: HEPARIN 5,000 UNIT/1 ML VIAL SC ×2 (13:35→20:59)
[2018-10-22] MEDS: MUPIROCIN 2% 22 GM OINT TOP (20:49)
[2018-10-23] MEDS: morphine LIQ (20 MG/ML PO SYG) PO ×4 (01:00→23:32)
[2018-10-23] MEDS: VANCOMYCIN 1 GM 250 ML IVPB ×2 (01:46→10:19)
[2018-10-23] MEDS ORDERED: HEPARIN 5,000 UNIT/0.5 ML VIAL (08:55)
[2018-10-23] MEDS: FAMOTIDINE 20 MG TAB PO (09:00)
[2018-10-23] MEDS: HEPARIN 5,000 UNIT/1 ML VIAL SC ×2 (09:00→21:00)
[2018-10-23] MEDS: MUPIROCIN 2% 22 GM OINT TOP ×2 (09:02→21:26)
[2018-10-23 09:48] LABS: VANCOMYCIN,TROUGH 9.6 ug/ml (10.0-20.0)
[2018-10-23] MEDS: VANCOMYCIN 1.25 GM in SOD CHLORIDE 0.9% 250 ML IVPB (17:18)
[2018-10-24] MEDS: VANCOMYCIN 1.25 GM in SOD CHLORIDE 0.9% 250 ML IVPB ×3 (01:50→19:18)
[2018-10-24] MEDS ORDERED: HEPARIN 5,000 UNIT/0.5 ML VIAL ×2 (08:10→20:06)
[2018-10-24] MEDS: morphine LIQ (20 MG/ML PO SYG) PO ×3 (09:02→22:02)
[2018-10-24] MEDS: FAMOTIDINE 20 MG TAB PO (09:02)
[2018-10-24] MEDS: MUPIROCIN 2% 22 GM OINT TOP ×2 (09:03→20:32)
[2018-10-24] MEDS: HEPARIN 5,000 UNIT/1 ML VIAL SC ×2 (09:03→21:05)
[2018-10-24 18:48] LABS: CREATININE 0.69 mg/dl (0.61-1.24)
[2018-10-24 18:48] LABS: BLOOD UREA NITROGEN 9 mg/dl (7-20)
[2018-10-24 18:52] LABS: VANCOMYCIN,TROUGH 14.8 ug/ml (10.0-20.0)
[2018-10-25] MEDS: VANCOMYCIN 1.25 GM in SOD CHLORIDE 0.9% 250 ML IVPB ×3 (02:00→17:13)
[2018-10-25] MEDS: OXYCODONE/ACETAMINOPHEN (10/325) TAB PO (05:03)
[2018-10-25] MEDS ORDERED: HEPARIN 5,000 UNIT/0.5 ML VIAL (08:48)
[2018-10-25] MEDS: FAMOTIDINE 20 MG TAB PO (09:10)
[2018-10-25] MEDS: MUPIROCIN 2% 22 GM OINT TOP ×2 (09:11→21:29)
[2018-10-25] MEDS: morphine LIQ (20 MG/ML PO SYG) PO ×2 (09:11→15:42)
[2018-10-25] MEDS: HEPARIN 5,000 UNIT/1 ML VIAL SC (09:15)
[2018-10-25] MEDS: ALBUTEROL/IPRATROPIUM (NEB) 3 ML AMP HHN ×2 (14:03→20:30)
[2018-10-25] MEDS: RIVAROXABAN 20 MG TABLET PO (17:13)
[2018-10-26] MEDS: VANCOMYCIN 1.25 GM in SOD CHLORIDE 0.9% 250 ML IVPB ×2 (02:05→10:09)
[2018-10-26 05:42] LABS: ADD MAN DIFF? NO
[2018-10-26 05:44] LABS: WHITE BLOOD COUNT 9.6 10^3/ul (4.8-10.8)
[2018-10-26 05:44] LABS: BASOPHIL # 0.1 10^3/ul (0.0-0.1); BASOPHILS % 0.9 % (0.0-2.0); EOSINOPHILS # 0.3 10^3/ul (0.0-0.5); EOSINOPHILS % 3.6 % (0.0-7.0); HEMATOCRIT 28.4 % (42.0-52.0); HEMOGLOBIN 8.8 g/dl (14.0-18.0); LYMPHOCYTES # 1.5 10^3/ul (0.8-2.9); LYMPHOCYTES % 15.2 % (15.0-51.0); MEAN CORPUSCULAR HEMOGLOBIN 27.2 pg (29.0-33.0); MEAN CORPUSCULAR VOLUME 87.7 fl (82.0-101.0); MONOCYTE # 1.2 10^3/ul (0.3-0.9); MONOCYTES % 12.4 % (0.0-11.0); NEUTROPHIL # 6.3 10^3/ul (1.6-7.5); NEUTROPHILS % 66.1 % (39.0-77.0); PLATELET COUNT 834 10^3/UL (140-415); RED BLOOD COUNT 3.24 10^6/ul (4.70-6.10); RED CELL DISTRIBUTION WIDTH 16.8 % (11.5-14.5)
[2018-10-26 06:08] LABS: ANION GAP 8 (5-13); BLOOD UREA NITROGEN 10 mg/dl (7-20); CARBON DIOXIDE 31 mmol/L (21-31); CHLORIDE 103 mmol/L (97-110); CREATININE 0.61 mg/dl (0.61-1.24); Estimated GFR > 60 mL/min (>60); GLUCOSE 97 mg/dl (70-220); POTASSIUM 4.2 mmol/L (3.5-5.1); SODIUM 142 mmol/L (135-144)
[2018-10-26 06:10] LABS: MAGNESIUM 1.8 mg/dl (1.7-2.5)
[2018-10-26] MEDS: MUPIROCIN 2% 22 GM OINT TOP ×2 (08:12→21:26)
[2018-10-26] MEDS: FAMOTIDINE 20 MG TAB PO (08:12)
[2018-10-26] MEDS: morphine LIQ (20 MG/ML PO SYG) PO ×4 (08:17→22:55)
[2018-10-26] MEDS: ALBUTEROL/IPRATROPIUM (NEB) 3 ML AMP HHN ×3 (08:19→19:51)
[2018-10-26] MEDS: TRIMETHOPRIM/SULFAMETHOX (DS) TAB PO ×2 (15:24→22:55)
[2018-10-26] MEDS: RIVAROXABAN 20 MG TABLET PO (17:21)
[2018-10-27 05:45] LABS: ADD MAN DIFF? NO
[2018-10-27 05:52] LABS: BASOPHIL # 0.1 10^3/ul (0.0-0.1); BASOPHILS % 1.3 % (0.0-2.0); EOSINOPHILS # 0.3 10^3/ul (0.0-0.5); EOSINOPHILS % 2.8 % (0.0-7.0); HEMATOCRIT 30.1 % (42.0-52.0); HEMOGLOBIN 9.1 g/dl (14.0-18.0); LYMPHOCYTES # 1.3 10^3/ul (0.8-2.9); LYMPHOCYTES % 13.7 % (15.0-51.0); MEAN CORPUSCULAR HEMOGLOBIN 26.7 pg (29.0-33.0); MEAN CORPUSCULAR HGB CONC 30.2 g/dl (32.0-37.0); MEAN CORPUSCULAR VOLUME 88.3 fl (82.0-101.0); MONOCYTES % 10.9 % (0.0-11.0); NEUTROPHIL # 6.6 10^3/ul (1.6-7.5); NEUTROPHILS % 69.4 % (39.0-77.0); PLATELET COUNT 901 10^3/UL (140-415); RED BLOOD COUNT 3.41 10^6/ul (4.70-6.10); RED CELL DISTRIBUTION WIDTH 17.2 % (11.5-14.5)
[2018-10-27 05:52] LABS: WHITE BLOOD COUNT 9.5 10^3/ul (4.8-10.8)
[2018-10-27 06:11] LABS: MAGNESIUM 1.7 mg/dl (1.7-2.5)
[2018-10-27 06:11] LABS: PHOSPHORUS 5.7 mg/dl (2.5-4.9)
[2018-10-27 06:12] LABS: ANION GAP 10 (5-13); BLOOD UREA NITROGEN 12 mg/dl (7-20); CALCIUM 9.3 mg/dl (8.4-10.2); CARBON DIOXIDE 32 mmol/L (21-31); CHLORIDE 99 mmol/L (97-110); CREATININE 0.83 mg/dl (0.61-1.24); Estimated GFR > 60 mL/min (>60); GLUCOSE 116 mg/dl (70-220); POTASSIUM 3.9 mmol/L (3.5-5.1); SODIUM 141 mmol/L (135-144)
[2018-10-27] MEDS: morphine LIQ (20 MG/ML PO SYG) PO ×5 (06:37→21:57)
[2018-10-27] MEDS: ALBUTEROL/IPRATROPIUM (NEB) 3 ML AMP HHN ×3 (08:44→19:46)
[2018-10-27] MEDS: TRIMETHOPRIM/SULFAMETHOX (DS) TAB PO ×2 (09:47→21:56)
[2018-10-27] MEDS: MUPIROCIN 2% 22 GM OINT TOP ×2 (09:47→21:10)
[2018-10-27] MEDS: FAMOTIDINE 20 MG TAB PO (09:47)
[2018-10-27] MEDS: RIVAROXABAN 20 MG TABLET PO (16:48)
[2018-10-28] MEDS: morphine LIQ (20 MG/ML PO SYG) PO ×2 (02:51→07:15)
[2018-10-28] MEDS: ALBUTEROL/IPRATROPIUM (NEB) 3 ML AMP HHN (08:00)
[2018-10-28] MEDS: TRIMETHOPRIM/SULFAMETHOX (DS) TAB PO (08:29)
[2018-10-28] MEDS: MUPIROCIN 2% 22 GM OINT TOP (08:29)
[2018-10-28] MEDS: FAMOTIDINE 20 MG TAB PO (08:29)
[2018-10-28] MEDS: ACETAMINOPHEN 325 MG TAB PO (11:11)
== END 2018-10-28 12:37 | disposition home or self-care (01) | DRG 200 ==
LOC: E/R 17:40 → 6WM 20:48
PROC: 0W9930Z Drainage of Right Pleural Cavity with Drainage Device, Percutaneous Approach (ICD-10-PCS; principal; 2018-10-19)
DX: J93.83 Other pneumothorax (principal); R64 Cachexia; L03.313 Cellulitis of chest wall; T81.49XA Infection following a procedure, other surgical site, initial encounter; J94.8 Other specified pleural conditions; I27.82 Chronic pulmonary embolism; D53.9 Nutritional anemia, unspecified; B95.62 Methicillin resistant Staphylococcus aureus infection as the cause of diseases classified elsewhere; J44.9 Chronic obstructive pulmonary disease, unspecified; Y83.8 Other surgical procedures as the cause of abnormal reaction of the patient, or of later complication, without mention of misadventure at the time of the procedure; Y92.238 Other place in hospital as the place of occurrence of the external cause; G89.29 Other chronic pain; Z86.19 Personal history of other infectious and parasitic diseases; Z86.718 Personal history of other venous thrombosis and embolism; Z87.891 Personal history of nicotine dependence; Z91.19 Patient's noncompliance with other medical treatment and regimen
CPT/HCPCS: 36415; 71045; 75989; 80048; 80053; 80202; 82270; 82565; 82728; 83540; 83690; 83735; 84100; 84443; 84484; 84520; 85025; 85610; 85730; 87040; 87070; 87081; 93005; 94640; 96374; 99285-25

== ENCOUNTER 2018-11-03 14:34 | Emergency (ER) | payer OTHER | END 2018-11-03 23:00 | disposition home or self-care (01) | LOC: E/R 14:34 | DX: Z48.01 Encounter for change or removal of surgical wound dressing (principal); J44.9 Chronic obstructive pulmonary disease, unspecified; Z87.891 Personal history of nicotine dependence | CPT/HCPCS: 71045; 99283-25 ==

== ENCOUNTER 2018-12-02 15:22 | Inpatient (IN) | payer OTHER ==
[2018-12-02 19:00] LABS: HEMATOCRIT 33.1 % (42.0-52.0); HEMOGLOBIN 10.5 g/dl (14.0-18.0); MEAN CORPUSCULAR HEMOGLOBIN 25.9 pg (29.0-33.0); MEAN CORPUSCULAR HGB CONC 31.7 g/dl (32.0-37.0); MEAN CORPUSCULAR VOLUME 81.5 fl (82.0-101.0); MEAN PLATELET VOLUME 8.3 fl (7.4-10.4); PLATELET COUNT 719 10^3/UL (140-415); RED BLOOD COUNT 4.06 10^6/ul (4.70-6.10); RED CELL DISTRIBUTION WIDTH 17.1 % (11.5-14.5)
[2018-12-02 19:00] LABS: WHITE BLOOD COUNT 12.6 10^3/ul (4.8-10.8)
[2018-12-02 19:07] LABS: ADD MAN DIFF? YES
[2018-12-02 19:18] LABS: ANION GAP 7 (5-13); BLOOD UREA NITROGEN 12 mg/dl (7-20); CALCIUM 9.2 mg/dl (8.4-10.2); CARBON DIOXIDE 30 mmol/L (21-31); CHLORIDE 100 mmol/L (97-110); CREATININE 0.88 mg/dl (0.61-1.24); Estimated GFR > 60 mL/min (>60); GLUCOSE 99 mg/dl (70-220); POTASSIUM 4.6 mmol/L (3.5-5.1); SODIUM 137 mmol/L (135-144)
[2018-12-02 19:23] LABS: INR 1.04; PROTIME 13.7 Sec (11.9-14.9); PT RATIO 1.1
[2018-12-02 19:29] LABS: TROPONIN-I < 0.012 ng/ml (0.000-0.120)
[2018-12-02 19:56] LABS: ANISOCYTOSIS 1+ (0-0); BASOPHIL #M 0.1 10^3/ul (0.0-0.0); BASOPHILS % (M) 1 % (0-2); EOSINOPHILS % (M) 4 % (0-7); GIANT THROMBO% (M) 4 % (0-0); LYMPHOCYTES #M 1.1 10^3/ul (0.8-2.9); LYMPHOCYTES % (M) 9 % (15-51); MONOCYTE #M 1.3 10^3/ul (0.3-0.9); MONOCYTES % (M) 11 % (0-11); PLATELET ESTIMATE INCREASED; POLYCHROMASIA 1+ (0-0); SEGMENTED NEUTROPHILS (M) % 75 % (39-77); SMUDGE%M 1 % (0-0); TARGET CELLS 1+ (0-0)
[2018-12-02] MEDS: IOHEXOL 300MG/ML 150 ML BTL (20:04)
[2018-12-02] MEDS: SOD CHLORIDE 0.9% 100 ML (20:04)
[2018-12-02] MEDS: PIPER-TAZO 3.375 GM IV (PMX) 100 ML IVPB (21:46)
[2018-12-02] MEDS: VANCOMYCIN 1 GM (PMX) 250 ML IVPB (22:27)
[2018-12-03] MEDS ORDERED: NACL 0.9% 3 ML SYG IV
[2018-12-03] MEDS: PIPER-TAZO 3.375 GM IV (PMX) 100 ML IVPB ×5 (02:00→23:54)
[2018-12-03] MEDS: HYDROCODONE/APAP (5/325) TAB PO ×3 (05:49→19:54)
[2018-12-03 06:05] LABS: ADD MAN DIFF? NO
[2018-12-03 06:09] LABS: WHITE BLOOD COUNT 10.2 10^3/ul (4.8-10.8)
[2018-12-03 06:09] LABS: BASOPHIL # 0.1 10^3/ul (0.0-0.1); BASOPHILS % 1.3 % (0.0-2.0); EOSINOPHILS # 0.8 10^3/ul (0.0-0.5); EOSINOPHILS % 7.9 % (0.0-7.0); HEMATOCRIT 34.8 % (42.0-52.0); HEMOGLOBIN 10.8 g/dl (14.0-18.0); LYMPHOCYTES # 1.5 10^3/ul (0.8-2.9); LYMPHOCYTES % 14.3 % (15.0-51.0); MEAN CORPUSCULAR HEMOGLOBIN 25.6 pg (29.0-33.0); MEAN CORPUSCULAR VOLUME 82.5 fl (82.0-101.0); MEAN PLATELET VOLUME 8.6 fl (7.4-10.4); MONOCYTE # 1.1 10^3/ul (0.3-0.9); NEUTROPHIL # 6.5 10^3/ul (1.6-7.5); NEUTROPHILS % 63.6 % (39.0-77.0); PLATELET COUNT 763 10^3/UL (140-415); RED BLOOD COUNT 4.22 10^6/ul (4.70-6.10); RED CELL DISTRIBUTION WIDTH 17.3 % (11.5-14.5)
[2018-12-03 06:27] LABS: ALBUMIN 3.8 g/dl (3.3-4.9); ALKALINE PHOSPHATASE 94 IU/L (42-121); ANION GAP 9 (5-13); ASPARTATE AMINO TRANSFERASE 19 IU/L (15-46); BLOOD UREA NITROGEN 11 mg/dl (7-20); CALCIUM 9.2 mg/dl (8.4-10.2); CARBON DIOXIDE 26 mmol/L (21-31); CHLORIDE 106 mmol/L (97-110); CREATININE 0.85 mg/dl (0.61-1.24); Estimated GFR > 60 mL/min (>60); GLUCOSE 118 mg/dl (70-220); MAGNESIUM 2.1 mg/dl (1.7-2.5); POTASSIUM 3.9 mmol/L (3.5-5.1); SODIUM 141 mmol/L (135-144)
[2018-12-03 06:29] LABS: ALANINE AMINOTRANSFERASE < 6 IU/L (13-69)
[2018-12-03] MEDS ORDERED: VANCOMYCIN 750 MG (PMX) 250 ML IVPB (08:00)
[2018-12-03] MEDS ORDERED: VANCOMYCIN IV PER PHARMACY XX (09:00)
[2018-12-03] MEDS: VANCOMYCIN 1 GM 250 ML IVPB ×2 (09:04→19:53)
[2018-12-03] MEDS ORDERED: DOCUSATE SODIUM 100 MG CAP PO (13:00)
[2018-12-03] MEDS: LACTOBACILLUS RHAMNOSUS CAP PO ×2 (14:00→23:02)
[2018-12-03] MEDS: FAMOTIDINE 20 MG TAB PO (14:28)
[2018-12-04] MEDS: PIPER-TAZO 3.375 GM IV (PMX) 100 ML IVPB ×2 (05:55→12:27)
[2018-12-04] MEDS: HYDROCODONE/APAP (5/325) TAB PO ×2 (07:20→12:27)
[2018-12-04 07:35] LABS: ADD MAN DIFF? NO
[2018-12-04 07:38] LABS: WHITE BLOOD COUNT 10.2 10^3/ul (4.8-10.8)
[2018-12-04 07:38] LABS: BASOPHIL # 0.1 10^3/ul (0.0-0.1); BASOPHILS % 1.1 % (0.0-2.0); EOSINOPHILS # 0.7 10^3/ul (0.0-0.5); EOSINOPHILS % 6.6 % (0.0-7.0); HEMATOCRIT 34.9 % (42.0-52.0); HEMOGLOBIN 10.9 g/dl (14.0-18.0); LYMPHOCYTES # 1.3 10^3/ul (0.8-2.9); LYMPHOCYTES % 13.2 % (15.0-51.0); MEAN CORPUSCULAR HEMOGLOBIN 25.5 pg (29.0-33.0); MEAN CORPUSCULAR HGB CONC 31.2 g/dl (32.0-37.0); MEAN CORPUSCULAR VOLUME 81.7 fl (82.0-101.0); MEAN PLATELET VOLUME 8.2 fl (7.4-10.4); MONOCYTES % 10.1 % (0.0-11.0); NEUTROPHIL # 6.9 10^3/ul (1.6-7.5); NEUTROPHILS % 67.4 % (39.0-77.0); PLATELET COUNT 710 10^3/UL (140-415); RED BLOOD COUNT 4.27 10^6/ul (4.70-6.10); RED CELL DISTRIBUTION WIDTH 17.1 % (11.5-14.5)
[2018-12-04 07:59] LABS: INR 1.07; PT RATIO 1.1
[2018-12-04 08:00] LABS: ALANINE AMINOTRANSFERASE 12 IU/L (13-69); ALBUMIN 3.8 g/dl (3.3-4.9); ALBUMIN/GLOBULIN RATIO 0.95; ALKALINE PHOSPHATASE 84 IU/L (42-121); ANION GAP 9 (5-13); ASPARTATE AMINO TRANSFERASE 18 IU/L (15-46); BILIRUBIN,INDIRECT 0.1 mg/dl (0-1.1); BILIRUBIN,TOTAL 0.1 mg/dl (0.2-1.3); BLOOD UREA NITROGEN 9 mg/dl (7-20); CALCIUM 9.6 mg/dl (8.4-10.2); CARBON DIOXIDE 27 mmol/L (21-31); CHLORIDE 104 mmol/L (97-110); CREATININE 0.83 mg/dl (0.61-1.24); Estimated GFR > 60 mL/min (>60); GLUCOSE 108 mg/dl (70-220); POTASSIUM 4.5 mmol/L (3.5-5.1); SODIUM 140 mmol/L (135-144); TOTAL PROTEIN 7.8 g/dl (6.1-8.1)
[2018-12-04 08:07] LABS: HEMOGLOBIN A1C 5.3 % (0-5.9); VANCOMYCIN,TROUGH 6.7 ug/ml (10.0-20.0)
[2018-12-04] MEDS: FAMOTIDINE 20 MG TAB PO (08:28)
[2018-12-04] MEDS: VANCOMYCIN 1 GM 250 ML IVPB (08:29)
[2018-12-04] MEDS: LACTOBACILLUS RHAMNOSUS CAP PO ×2 (08:29→21:30)
[2018-12-04 08:30] LABS: THYROID STIMULATING HORMONE 0.833 MIU/L (0.465-4.680)
[2018-12-04] MEDS ORDERED: BISACODYL (EC) 5 MG TAB PO (16:00)
[2018-12-04] MEDS ORDERED: BISACODYL 10 MG SUPP PR (16:00)
[2018-12-04] MEDS: HYDROCODONE/APAP (10/325) TAB PO ×2 (16:45→20:45)
[2018-12-04] MEDS: ENOXAPARIN 40 MG/0.4 ML SYG SC (17:19)
[2018-12-04] MEDS: VANCOMYCIN 1.5 GM in SOD CHLORIDE 0.9% 250 ML IVPB (20:47)
[2018-12-05] MEDS: LACTOBACILLUS RHAMNOSUS CAP PO ×2 (08:20→21:20)
[2018-12-05] MEDS: HYDROCODONE/APAP (10/325) TAB PO ×2 (08:20→21:20)
[2018-12-05] MEDS: FAMOTIDINE 20 MG TAB PO (08:20)
[2018-12-05] MEDS: VANCOMYCIN 1.5 GM in SOD CHLORIDE 0.9% 250 ML IVPB ×2 (08:21→21:20)
[2018-12-05] MEDS: ENOXAPARIN 40 MG/0.4 ML SYG SC (08:27)
[2018-12-06] MEDS ORDERED: traMADol 50 MG TAB (01:09)
[2018-12-06] MEDS ORDERED: KETOROLAC 30 MG INJ (01:13)
[2018-12-06] MEDS: HYDROCODONE/APAP (10/325) TAB PO ×3 (01:30→20:03)
[2018-12-06] MEDS: traMADol 50 MG TAB PO (01:30)
[2018-12-06] MEDS: KETOROLAC 30 MG INJ IV (01:32)
[2018-12-06 07:49] LABS: BLOOD UREA NITROGEN 16 mg/dl (7-20)
[2018-12-06 07:53] LABS: VANCOMYCIN,TROUGH 13.2 ug/ml (10.0-20.0)
[2018-12-06] MEDS: VANCOMYCIN 1.5 GM in SOD CHLORIDE 0.9% 250 ML IVPB ×2 (09:14→20:34)
[2018-12-06] MEDS: FAMOTIDINE 20 MG TAB PO (09:15)
[2018-12-06] MEDS: IBUPROFEN 800 MG TAB PO (09:15)
[2018-12-06] MEDS: LACTOBACILLUS RHAMNOSUS CAP PO ×2 (09:21→20:39)
[2018-12-06] MEDS: ALBUTEROL/IPRATROPIUM (NEB) 3 ML AMP HHN ×2 (13:25→20:00)
[2018-12-07 05:42] LABS: ADD MAN DIFF? NO
[2018-12-07 05:49] LABS: WHITE BLOOD COUNT 11.7 10^3/ul (4.8-10.8)
[2018-12-07 05:49] LABS: BASOPHIL # 0.1 10^3/ul (0.0-0.1); BASOPHILS % 0.9 % (0.0-2.0); EOSINOPHILS # 0.5 10^3/ul (0.0-0.5); EOSINOPHILS % 4.2 % (0.0-7.0); HEMATOCRIT 37.2 % (42.0-52.0); HEMOGLOBIN 11.2 g/dl (14.0-18.0); LYMPHOCYTES # 1.2 10^3/ul (0.8-2.9); LYMPHOCYTES % 10.4 % (15.0-51.0); MEAN CORPUSCULAR HEMOGLOBIN 24.9 pg (29.0-33.0); MEAN CORPUSCULAR HGB CONC 30.1 g/dl (32.0-37.0); MEAN CORPUSCULAR VOLUME 82.9 fl (82.0-101.0); MEAN PLATELET VOLUME 8.4 fl (7.4-10.4); MONOCYTE # 1.1 10^3/ul (0.3-0.9); MONOCYTES % 9.7 % (0.0-11.0); NEUTROPHIL # 8.6 10^3/ul (1.6-7.5); NEUTROPHILS % 73.2 % (39.0-77.0); PLATELET COUNT 664 10^3/UL (140-415); RED BLOOD COUNT 4.49 10^6/ul (4.70-6.10); RED CELL DISTRIBUTION WIDTH 16.6 % (11.5-14.5)
[2018-12-07 06:09] LABS: MAGNESIUM 1.8 mg/dl (1.7-2.5)
[2018-12-07 06:09] LABS: PHOSPHORUS 4.1 mg/dl (2.5-4.9)
[2018-12-07 06:11] LABS: ANION GAP 7 (5-13); BLOOD UREA NITROGEN 15 mg/dl (7-20); CALCIUM 9.8 mg/dl (8.4-10.2); CARBON DIOXIDE 30 mmol/L (21-31); CHLORIDE 101 mmol/L (97-110); CREATININE 0.75 mg/dl (0.61-1.24); Estimated GFR > 60 mL/min (>60); GLUCOSE 106 mg/dl (70-220); POTASSIUM 5.2 mmol/L (3.5-5.1); SODIUM 138 mmol/L (135-144)
[2018-12-07] MEDS: ALBUTEROL/IPRATROPIUM (NEB) 3 ML AMP HHN ×3 (07:59→20:08)
[2018-12-07] MEDS: LACTOBACILLUS RHAMNOSUS CAP PO ×2 (08:18→20:00)
[2018-12-07] MEDS: HYDROCODONE/APAP (10/325) TAB PO ×2 (08:18→20:00)
[2018-12-07] MEDS: FAMOTIDINE 20 MG TAB PO (08:19)
[2018-12-07] MEDS: VANCOMYCIN 1.5 GM in SOD CHLORIDE 0.9% 250 ML IVPB ×2 (08:19→19:59)
[2018-12-07] MEDS ORDERED: PROPOFOL 20 ML (10:12)
[2018-12-07] MEDS ORDERED: FENTAnyl 50 MCG/ML VIAL (10:15)
[2018-12-07] MEDS ORDERED: MIDAZOLAM 1 MG/ML 2 ML INJ (10:15)
[2018-12-07] MEDS: LIDOCAINE 2% (MDV) 20 ML INJ (10:53)
[2018-12-07] MEDS ORDERED: FENTAnyl 50 MCG/ML VIAL IV ×2 (11:30)
[2018-12-07] MEDS ORDERED: ONDANSETRON 4 MG INJ IV (11:30)
[2018-12-07] MEDS ORDERED: MIDAZOLAM 1 MG/ML 2 ML INJ IV (11:30)
[2018-12-07] MEDS ORDERED: DIPHENHYDRAMINE 50 MG INJ IV (11:30)
[2018-12-07] MEDS ORDERED: METOCLOPRAMIDE 10 MG INJ IV (11:30)
[2018-12-07] MEDS ORDERED: MEPERIDINE 25 MG INJ IV (11:30)
[2018-12-07] MEDS: FENTAnyl 50 MCG/ML VIAL IV (12:01)
[2018-12-07 15:55] LABS: LACTATE DEHYDROGENASE 431 IU/L (313-618)
[2018-12-07 16:37] LABS: FLD PMN% 87.3 %; FLD RBC 186000 /uL; FLD WBC 7039 /cmm
[2018-12-07 20:41] LABS: FLD MN% 12.7 %
[2018-12-07 20:42] LABS: FLD CLARITY TURBID; FLD COLOR MILKY
[2018-12-07 20:42] LABS: FLD TYPE THORACENTHESIS
[2018-12-08 05:39] LABS: ADD MAN DIFF? NO
[2018-12-08 05:47] LABS: BASOPHIL # 0.1 10^3/ul (0.0-0.1); EOSINOPHILS # 0.4 10^3/ul (0.0-0.5); HEMATOCRIT 35.1 % (42.0-52.0); HEMOGLOBIN 10.7 g/dl (14.0-18.0); LYMPHOCYTES # 1.4 10^3/ul (0.8-2.9); LYMPHOCYTES % 14.2 % (15.0-51.0); MEAN CORPUSCULAR HEMOGLOBIN 25.1 pg (29.0-33.0); MEAN CORPUSCULAR HGB CONC 30.5 g/dl (32.0-37.0); MEAN CORPUSCULAR VOLUME 82.4 fl (82.0-101.0); MEAN PLATELET VOLUME 8.6 fl (7.4-10.4); MONOCYTE # 1.3 10^3/ul (0.3-0.9); MONOCYTES % 13.3 % (0.0-11.0); NEUTROPHIL # 6.4 10^3/ul (1.6-7.5); NEUTROPHILS % 65.6 % (39.0-77.0); PLATELET COUNT 613 10^3/UL (140-415); RED BLOOD COUNT 4.26 10^6/ul (4.70-6.10); RED CELL DISTRIBUTION WIDTH 16.7 % (11.5-14.5)
[2018-12-08 05:47] LABS: WHITE BLOOD COUNT 9.8 10^3/ul (4.8-10.8)
[2018-12-08 06:20] LABS: ANION GAP 9 (5-13); BLOOD UREA NITROGEN 14 mg/dl (7-20); CALCIUM 9.9 mg/dl (8.4-10.2); CARBON DIOXIDE 29 mmol/L (21-31); CHLORIDE 102 mmol/L (97-110); CREATININE 0.73 mg/dl (0.61-1.24); Estimated GFR > 60 mL/min (>60); GLUCOSE 115 mg/dl (70-220); POTASSIUM 4.9 mmol/L (3.5-5.1); SODIUM 140 mmol/L (135-144)
[2018-12-08] MEDS: ALBUTEROL/IPRATROPIUM (NEB) 3 ML AMP HHN ×3 (08:52→19:52)
[2018-12-08] MEDS: FAMOTIDINE 20 MG TAB PO (09:27)
[2018-12-08] MEDS: VANCOMYCIN 1.5 GM in SOD CHLORIDE 0.9% 250 ML IVPB ×2 (09:27→20:02)
[2018-12-08] MEDS: LACTOBACILLUS RHAMNOSUS CAP PO ×2 (09:28→20:39)
[2018-12-08] MEDS: HYDROCODONE/APAP (10/325) TAB PO ×3 (14:30→21:53)
[2018-12-09 05:41] LABS: ADD MAN DIFF? NO
[2018-12-09 05:43] LABS: WHITE BLOOD COUNT 11.2 10^3/ul (4.8-10.8)
[2018-12-09 05:43] LABS: BASOPHIL # 0.1 10^3/ul (0.0-0.1); BASOPHILS % 0.9 % (0.0-2.0); EOSINOPHILS # 0.5 10^3/ul (0.0-0.5); EOSINOPHILS % 4.8 % (0.0-7.0); HEMATOCRIT 33.6 % (42.0-52.0); HEMOGLOBIN 10.5 g/dl (14.0-18.0); LYMPHOCYTES # 1.4 10^3/ul (0.8-2.9); LYMPHOCYTES % 12.3 % (15.0-51.0); MEAN CORPUSCULAR HEMOGLOBIN 25.2 pg (29.0-33.0); MEAN CORPUSCULAR HGB CONC 31.3 g/dl (32.0-37.0); MEAN CORPUSCULAR VOLUME 80.6 fl (82.0-101.0); MEAN PLATELET VOLUME 8.6 fl (7.4-10.4); MONOCYTE # 1.4 10^3/ul (0.3-0.9); MONOCYTES % 12.3 % (0.0-11.0); NEUTROPHIL # 7.6 10^3/ul (1.6-7.5); NEUTROPHILS % 68.2 % (39.0-77.0); PLATELET COUNT 571 10^3/UL (140-415); RED BLOOD COUNT 4.17 10^6/ul (4.70-6.10); RED CELL DISTRIBUTION WIDTH 16.7 % (11.5-14.5)
[2018-12-09 06:06] LABS: MAGNESIUM 1.8 mg/dl (1.7-2.5)
[2018-12-09 06:06] LABS: PHOSPHORUS 4.8 mg/dl (2.5-4.9)
[2018-12-09 06:09] LABS: ANION GAP 9 (5-13); BLOOD UREA NITROGEN 14 mg/dl (7-20); CALCIUM 9.9 mg/dl (8.4-10.2); CARBON DIOXIDE 27 mmol/L (21-31); CHLORIDE 102 mmol/L (97-110); CREATININE 0.69 mg/dl (0.61-1.24); Estimated GFR > 60 mL/min (>60); GLUCOSE 114 mg/dl (70-220); POTASSIUM 4.6 mmol/L (3.5-5.1); SODIUM 138 mmol/L (135-144)
[2018-12-09] MEDS: VANCOMYCIN 1.5 GM in SOD CHLORIDE 0.9% 250 ML IVPB ×2 (08:19→20:21)
[2018-12-09] MEDS: FAMOTIDINE 20 MG TAB PO (08:19)
[2018-12-09] MEDS: LACTOBACILLUS RHAMNOSUS CAP PO ×2 (08:19→20:21)
[2018-12-09] MEDS: HYDROCODONE/APAP (10/325) TAB PO ×4 (08:24→20:21)
[2018-12-09] MEDS: ALBUTEROL/IPRATROPIUM (NEB) 3 ML AMP HHN ×3 (08:55→20:00)
[2018-12-09] MEDS: RIVAROXABAN 20 MG TABLET PO (17:55)
[2018-12-09] MEDS: traMADol 50 MG TAB PO (20:25)
[2018-12-09] MEDS: CEFEPIME 1GM/50 ML (PMX) 50 ML IVPB (20:29)
[2018-12-10] MEDS: traMADol 50 MG TAB PO (03:36)
[2018-12-10] MEDS: HYDROCODONE/APAP (10/325) TAB PO ×6 (03:36→22:32)
[2018-12-10 05:50] LABS: WHITE BLOOD COUNT 9.1 10^3/ul (4.8-10.8)
[2018-12-10 05:50] LABS: ADD MAN DIFF? NO; BASOPHIL # 0.1 10^3/ul (0.0-0.1); BASOPHILS % 0.9 % (0.0-2.0); EOSINOPHILS # 0.4 10^3/ul (0.0-0.5); EOSINOPHILS % 4.4 % (0.0-7.0); HEMATOCRIT 33.7 % (42.0-52.0); HEMOGLOBIN 10.5 g/dl (14.0-18.0); LYMPHOCYTES # 0.7 10^3/ul (0.8-2.9); LYMPHOCYTES % 7.7 % (15.0-51.0); MEAN CORPUSCULAR HEMOGLOBIN 25.2 pg (29.0-33.0); MEAN CORPUSCULAR HGB CONC 31.2 g/dl (32.0-37.0); MEAN PLATELET VOLUME 8.8 fl (7.4-10.4); MONOCYTE # 1.2 10^3/ul (0.3-0.9); MONOCYTES % 13.1 % (0.0-11.0); NEUTROPHIL # 6.5 10^3/ul (1.6-7.5); NEUTROPHILS % 71.5 % (39.0-77.0); PLATELET COUNT 541 10^3/UL (140-415); RED BLOOD COUNT 4.16 10^6/ul (4.70-6.10); RED CELL DISTRIBUTION WIDTH 16.7 % (11.5-14.5)
[2018-12-10 06:35] LABS: ANION GAP 7 (5-13); BLOOD UREA NITROGEN 12 mg/dl (7-20); CALCIUM 9.6 mg/dl (8.4-10.2); CARBON DIOXIDE 28 mmol/L (21-31); CHLORIDE 100 mmol/L (97-110); CREATININE 0.67 mg/dl (0.61-1.24); Estimated GFR > 60 mL/min (>60); GLUCOSE 109 mg/dl (70-220); POTASSIUM 4.2 mmol/L (3.5-5.1); SODIUM 135 mmol/L (135-144)
[2018-12-10 06:48] LABS: MAGNESIUM 1.8 mg/dl (1.7-2.5)
[2018-12-10 06:48] LABS: PHOSPHORUS 4.1 mg/dl (2.5-4.9)
[2018-12-10 08:06] LABS: VANCOMYCIN,TROUGH 15.6 ug/ml (10.0-20.0)
[2018-12-10] MEDS: CEFEPIME 1GM/50 ML (PMX) 50 ML IVPB ×2 (08:32→20:47)
[2018-12-10] MEDS: LACTOBACILLUS RHAMNOSUS CAP PO ×2 (08:32→20:47)
[2018-12-10] MEDS: FAMOTIDINE 20 MG TAB PO (08:32)
[2018-12-10] MEDS: ALBUTEROL/IPRATROPIUM (NEB) 3 ML AMP HHN ×3 (08:50→20:58)
[2018-12-10] MEDS: VANCOMYCIN 1.5 GM in SOD CHLORIDE 0.9% 250 ML IVPB ×2 (09:51→10:26)
[2018-12-10] MEDS: KETOROLAC 30 MG INJ IV ×3 (10:25→23:07)
[2018-12-10] MEDS: RIVAROXABAN 20 MG TABLET PO (18:18)
[2018-12-10] MEDS: VANCOMYCIN HCL 1.25 GM in SOD CHLORIDE 0.9% 250 ML IVPB (22:26)
[2018-12-11] MEDS: GUAIFENESIN 20 MG/ML 5ML CUP PO ×5 (00:33→20:40)
[2018-12-11] MEDS: CEPASTAT LOZENGE MT ×4 (00:33→20:40)
[2018-12-11] MEDS: ALBUTEROL/IPRATROPIUM (NEB) 3 ML AMP HHN ×4 (01:15→20:13)
[2018-12-11] MEDS: HYDROCODONE/APAP (10/325) TAB PO ×2 (01:26→08:31)
[2018-12-11] MEDS: ONDANSETRON 4 MG INJ IV (01:29)
[2018-12-11] MEDS: KETOROLAC 30 MG INJ IV ×3 (05:04→20:26)
[2018-12-11] MEDS: CEFEPIME 1GM/50 ML (PMX) 50 ML IVPB (08:31)
[2018-12-11] MEDS: FAMOTIDINE 20 MG TAB PO (08:32)
[2018-12-11] MEDS: LACTOBACILLUS RHAMNOSUS CAP PO ×2 (08:32→20:26)
[2018-12-11] MEDS: VANCOMYCIN HCL 1.25 GM in SOD CHLORIDE 0.9% 250 ML IVPB (10:57)
[2018-12-11 13:58] LABS: ADD MAN DIFF? NO; BASOPHIL # 0.1 10^3/ul (0.0-0.1); BASOPHILS % 1.1 % (0.0-2.0); EOSINOPHILS # 0.3 10^3/ul (0.0-0.5); EOSINOPHILS % 4.2 % (0.0-7.0); HEMATOCRIT 32.4 % (42.0-52.0); HEMOGLOBIN 9.9 g/dl (14.0-18.0); LYMPHOCYTES # 0.7 10^3/ul (0.8-2.9); LYMPHOCYTES % 11.9 % (15.0-51.0); MEAN CORPUSCULAR HEMOGLOBIN 24.8 pg (29.0-33.0); MEAN CORPUSCULAR HGB CONC 30.6 g/dl (32.0-37.0); MONOCYTES % 16.2 % (0.0-11.0); PLATELET COUNT 458 10^3/UL (140-415); RED CELL DISTRIBUTION WIDTH 16.4 % (11.5-14.5)
[2018-12-11 13:58] LABS: WHITE BLOOD COUNT 6.2 10^3/ul (4.8-10.8)
[2018-12-11 14:14] LABS: IRON 18 ug/dl (35-150)
[2018-12-11 14:15] LABS: ANION GAP 10 (5-13); BLOOD UREA NITROGEN 18 mg/dl (7-20); CARBON DIOXIDE 27 mmol/L (21-31); CHLORIDE 103 mmol/L (97-110); CREATININE 0.82 mg/dl (0.61-1.24); Estimated GFR > 60 mL/min (>60); GLUCOSE 126 mg/dl (70-220); MAGNESIUM 1.8 mg/dl (1.7-2.5); POTASSIUM 4.2 mmol/L (3.5-5.1); SODIUM 140 mmol/L (135-144)
[2018-12-11 14:15] LABS: PHOSPHORUS 5.2 mg/dl (2.5-4.9)
[2018-12-11 14:23] LABS: % IRON SATURATION 5 % SAT (22-52); TOTAL IRON BINDING CAPACITY 345 ug/dl (241-421)
[2018-12-11 14:50] LABS: FERRITIN 49.8 ng/ml (11.1-264.0)
[2018-12-11] MEDS: HYDROmorphONE 1 MG/ML SYG IV (17:48)
[2018-12-11] MEDS: RIVAROXABAN 20 MG TABLET PO (17:50)
[2018-12-11] MEDS: ACETAMINOPHEN 325 MG TAB PO (20:40)
[2018-12-11] MEDS: OXYCODONE/ACETAMINOPHEN (5/325) TAB PO (22:20)
[2018-12-12] MEDS: traMADol 50 MG TAB PO (00:12)
[2018-12-12] MEDS: KETOROLAC 30 MG INJ IV ×2 (02:30→08:36)
[2018-12-12] MEDS: OXYCODONE/ACETAMINOPHEN (5/325) TAB PO ×4 (05:47→22:25)
[2018-12-12] MEDS: ALBUTEROL/IPRATROPIUM (NEB) 3 ML AMP HHN ×3 (07:44→20:51)
[2018-12-12] MEDS: GUAIFENESIN 20 MG/ML 5ML CUP PO ×2 (08:37→17:57)
[2018-12-12] MEDS: FAMOTIDINE 20 MG TAB PO (08:37)
[2018-12-12] MEDS: LACTOBACILLUS RHAMNOSUS CAP PO ×2 (08:37→20:47)
[2018-12-12] MEDS: RIVAROXABAN 20 MG TABLET PO (17:57)
[2018-12-13] MEDS: OXYCODONE/ACETAMINOPHEN (5/325) TAB PO ×2 (05:01→10:24)
[2018-12-13] MEDS: FAMOTIDINE 20 MG TAB PO (08:36)
[2018-12-13] MEDS: LACTOBACILLUS RHAMNOSUS CAP PO ×2 (08:36→19:45)
[2018-12-13] MEDS: MAGNESIUM HYDROXIDE 30ML CUP PO (10:29)
[2018-12-13] MEDS: traMADol 50 MG TAB PO (13:22)
[2018-12-13] MEDS: HYDROmorphONE 1 MG/ML SYG IV ×2 (15:36→19:45)
[2018-12-13] MEDS: ALBUTEROL/IPRATROPIUM (NEB) 3 ML AMP HHN (17:22)
[2018-12-13] MEDS: RIVAROXABAN 20 MG TABLET PO (17:59)
[2018-12-13] MEDS: ONDANSETRON 4 MG INJ IV (19:50)
[2018-12-14] MEDS: HYDROmorphONE 1 MG/ML SYG IV ×4 (00:29→13:15)
[2018-12-14] MEDS: ALBUTEROL/IPRATROPIUM (NEB) 3 ML AMP HHN ×3 (01:06→15:03)
[2018-12-14] MEDS: ONDANSETRON 4 MG INJ IV ×2 (05:03→16:06)
[2018-12-14] MEDS: LACTOBACILLUS RHAMNOSUS CAP PO ×2 (09:09→21:56)
[2018-12-14] MEDS: OXYCODONE/ACETAMINOPHEN (5/325) TAB PO ×2 (09:48→23:02)
[2018-12-14] MEDS: KETOROLAC 15 MG INJ IV (17:35)
[2018-12-14] MEDS: RIVAROXABAN 20 MG TABLET PO (17:35)
[2018-12-15] MEDS: ALBUTEROL/IPRATROPIUM (NEB) 3 ML AMP HHN ×3 (00:30→16:00)
[2018-12-15] MEDS: OXYCODONE/ACETAMINOPHEN (5/325) TAB PO ×4 (05:54→20:37)
[2018-12-15 06:17] LABS: ADD MAN DIFF? NO
[2018-12-15 06:19] LABS: WHITE BLOOD COUNT 5.7 10^3/ul (4.8-10.8)
[2018-12-15 06:19] LABS: BASOPHIL # 0.1 10^3/ul (0.0-0.1); BASOPHILS % 1.2 % (0.0-2.0); EOSINOPHILS # 0.1 10^3/ul (0.0-0.5); EOSINOPHILS % 1.6 % (0.0-7.0); HEMATOCRIT 37.8 % (42.0-52.0); HEMOGLOBIN 11.8 g/dl (14.0-18.0); LYMPHOCYTES # 1.4 10^3/ul (0.8-2.9); LYMPHOCYTES % 23.6 % (15.0-51.0); MEAN CORPUSCULAR HEMOGLOBIN 24.7 pg (29.0-33.0); MEAN CORPUSCULAR HGB CONC 31.2 g/dl (32.0-37.0); MEAN CORPUSCULAR VOLUME 79.2 fl (82.0-101.0); MEAN PLATELET VOLUME 8.8 fl (7.4-10.4); MONOCYTE # 0.6 10^3/ul (0.3-0.9); MONOCYTES % 10.5 % (0.0-11.0); NEUTROPHIL # 3.6 10^3/ul (1.6-7.5); NEUTROPHILS % 62.1 % (39.0-77.0); PLATELET COUNT 542 10^3/UL (140-415); RED BLOOD COUNT 4.77 10^6/ul (4.70-6.10); RED CELL DISTRIBUTION WIDTH 15.8 % (11.5-14.5)
[2018-12-15 06:55] LABS: ALANINE AMINOTRANSFERASE 9 IU/L (13-69); ALBUMIN 3.8 g/dl (3.3-4.9); ALBUMIN/GLOBULIN RATIO 0.97; ALKALINE PHOSPHATASE 78 IU/L (42-121); ANION GAP 11 (5-13); ASPARTATE AMINO TRANSFERASE 35 IU/L (15-46); BLOOD UREA NITROGEN 19 mg/dl (7-20); CALCIUM 9.5 mg/dl (8.4-10.2); CARBON DIOXIDE 29 mmol/L (21-31); CHLORIDE 95 mmol/L (97-110); CREATININE 0.75 mg/dl (0.61-1.24); Estimated GFR > 60 mL/min (>60); GLUCOSE 143 mg/dl (70-220); SODIUM 135 mmol/L (135-144); TOTAL PROTEIN 7.7 g/dl (6.1-8.1)
[2018-12-15] MEDS: LACTOBACILLUS RHAMNOSUS CAP PO ×2 (08:38→20:37)
[2018-12-15] MEDS: RIVAROXABAN 20 MG TABLET PO (18:07)
[2018-12-16] MEDS: ALBUTEROL/IPRATROPIUM (NEB) 3 ML AMP HHN ×3 (08:00→16:18)
[2018-12-16] MEDS: LACTOBACILLUS RHAMNOSUS CAP PO ×2 (09:00→20:50)
[2018-12-16 11:04] LABS: INR 1.19; PARTIAL THROMBOPLASTIN TIME 33.6 Sec (23.0-35.0); PROTIME 15.2 Sec (11.9-14.9); PT RATIO 1.2
[2018-12-16] MEDS ORDERED: LIDOCAINE 1% (MDV) 20 ML INJ (11:33)
[2018-12-16] MEDS ORDERED: HEPARIN 1000 UNITS/NS (A-LINE) 1,000 ML (11:33)
[2018-12-16] MEDS ORDERED: FENTAnyl 50 MCG/ML VIAL (11:34)
[2018-12-16] MEDS ORDERED: MIDAZOLAM 1 MG/ML 2 ML INJ (11:34)
[2018-12-16] MEDS: OXYCODONE/ACETAMINOPHEN (5/325) TAB PO (14:44)
[2018-12-16] MEDS: RIVAROXABAN 20 MG TABLET PO (17:26)
[2018-12-17] MEDS: ALBUTEROL/IPRATROPIUM (NEB) 3 ML AMP HHN ×3 (00:46→15:49)
[2018-12-17] MEDS: LACTOBACILLUS RHAMNOSUS CAP PO ×3 (09:00→20:30)
[2018-12-17] MEDS: OXYCODONE/ACETAMINOPHEN (5/325) TAB PO (13:42)
[2018-12-17] MEDS: RIVAROXABAN 20 MG TABLET PO (18:11)
[2018-12-18 05:13] LABS: ADD MAN DIFF? NO
[2018-12-18 05:18] LABS: BASOPHIL # 0.1 10^3/ul (0.0-0.1); BASOPHILS % 0.9 % (0.0-2.0); EOSINOPHILS # 0.2 10^3/ul (0.0-0.5); EOSINOPHILS % 2.5 % (0.0-7.0); HEMATOCRIT 38.2 % (42.0-52.0); HEMOGLOBIN 11.9 g/dl (14.0-18.0); LYMPHOCYTES # 2.3 10^3/ul (0.8-2.9); LYMPHOCYTES % 25.5 % (15.0-51.0); MEAN CORPUSCULAR HEMOGLOBIN 24.9 pg (29.0-33.0); MEAN CORPUSCULAR HGB CONC 31.2 g/dl (32.0-37.0); MEAN CORPUSCULAR VOLUME 79.9 fl (82.0-101.0); MEAN PLATELET VOLUME 9.3 fl (7.4-10.4); MONOCYTES % 11.2 % (0.0-11.0); NEUTROPHILS % 56.1 % (39.0-77.0); PLATELET COUNT 653 10^3/UL (140-415); RED BLOOD COUNT 4.78 10^6/ul (4.70-6.10); RED CELL DISTRIBUTION WIDTH 15.7 % (11.5-14.5)
[2018-12-18 05:18] LABS: WHITE BLOOD COUNT 8.9 10^3/ul (4.8-10.8)
[2018-12-18 05:38] LABS: ANION GAP 10 (5-13); BLOOD UREA NITROGEN 10 mg/dl (7-20); CALCIUM 9.5 mg/dl (8.4-10.2); CARBON DIOXIDE 28 mmol/L (21-31); CHLORIDE 99 mmol/L (97-110); CREATININE 0.71 mg/dl (0.61-1.24); Estimated GFR > 60 mL/min (>60); GLUCOSE 97 mg/dl (70-220); MAGNESIUM 1.9 mg/dl (1.7-2.5); PHOSPHORUS 3.7 mg/dl (2.5-4.9); POTASSIUM 4.3 mmol/L (3.5-5.1); SODIUM 137 mmol/L (135-144)
[2018-12-18 05:47] LABS: INR 1.09; PROTIME 14.2 Sec (11.9-14.9); PT RATIO 1.1
[2018-12-18] MEDS: ALBUTEROL/IPRATROPIUM (NEB) 3 ML AMP HHN ×3 (08:00→16:05)
[2018-12-18] MEDS: LACTOBACILLUS RHAMNOSUS CAP PO ×2 (08:58→22:06)
[2018-12-18] MEDS: RIVAROXABAN 20 MG TABLET PO (17:17)
[2018-12-19] MEDS: ALBUTEROL/IPRATROPIUM (NEB) 3 ML AMP HHN ×3 (00:30→15:49)
[2018-12-19] MEDS: LACTOBACILLUS RHAMNOSUS CAP PO ×2 (10:26→21:15)
[2018-12-20] MEDS: morphine 4 MG/ML VIAL IV ×4 (03:23→19:54)
[2018-12-20] MEDS: ALBUTEROL/IPRATROPIUM (NEB) 3 ML AMP HHN ×3 (08:00→16:00)
[2018-12-20] MEDS: LACTOBACILLUS RHAMNOSUS CAP PO ×2 (08:36→20:39)
[2018-12-20] MEDS: MIDAZOLAM 1 MG/ML 2 ML INJ (12:24)
[2018-12-20] MEDS: FENTAnyl 50 MCG/ML VIAL (12:24)
[2018-12-20] MEDS: LIDOCAINE 1% (MPF) 5 ML VIAL (12:24)
[2018-12-20] MEDS: OXYCODONE/ACETAMINOPHEN (10/325) TAB PO (17:57)
[2018-12-20] MEDS: RIVAROXABAN 20 MG TABLET PO (21:21)
[2018-12-21] MEDS: ALBUTEROL/IPRATROPIUM (NEB) 3 ML AMP HHN ×3 (00:25→15:56)
[2018-12-21] MEDS: ACETAMINOPHEN 325 MG TAB PO ×3 (00:35→13:16)
[2018-12-21] MEDS: morphine 4 MG/ML VIAL IV ×4 (01:48→20:34)
[2018-12-21 06:15] LABS: ADD MAN DIFF? NO
[2018-12-21 06:34] LABS: BASOPHIL # 0.1 10^3/ul (0.0-0.1); EOSINOPHILS # 0.2 10^3/ul (0.0-0.5); EOSINOPHILS % 2.7 % (0.0-7.0); HEMOGLOBIN 10.6 g/dl (14.0-18.0); LYMPHOCYTES # 1.6 10^3/ul (0.8-2.9); LYMPHOCYTES % 19.9 % (15.0-51.0); MEAN CORPUSCULAR HEMOGLOBIN 24.8 pg (29.0-33.0); MEAN CORPUSCULAR HGB CONC 31.2 g/dl (32.0-37.0); MEAN CORPUSCULAR VOLUME 79.6 fl (82.0-101.0); MEAN PLATELET VOLUME 9.2 fl (7.4-10.4); MONOCYTES % 11.9 % (0.0-11.0); NEUTROPHIL # 4.8 10^3/ul (1.6-7.5); PLATELET COUNT 617 10^3/UL (140-415); RED BLOOD COUNT 4.27 10^6/ul (4.70-6.10); RED CELL DISTRIBUTION WIDTH 15.7 % (11.5-14.5)
[2018-12-21 06:34] LABS: WHITE BLOOD COUNT 8.1 10^3/ul (4.8-10.8)
[2018-12-21 06:50] LABS: ANION GAP 10 (5-13); BLOOD UREA NITROGEN 16 mg/dl (7-20); CALCIUM 9.3 mg/dl (8.4-10.2); CARBON DIOXIDE 25 mmol/L (21-31); CHLORIDE 103 mmol/L (97-110); CREATININE 0.65 mg/dl (0.61-1.24); Estimated GFR > 60 mL/min (>60); GLUCOSE 120 mg/dl (70-220); POTASSIUM 3.8 mmol/L (3.5-5.1); SODIUM 138 mmol/L (135-144)
[2018-12-21 06:59] LABS: TROPONIN-I < 0.012 ng/ml (0.000-0.120)
[2018-12-21] MEDS: LACTOBACILLUS RHAMNOSUS CAP PO ×2 (08:33→20:19)
[2018-12-21] MEDS: RIVAROXABAN 20 MG TABLET PO (18:25)
[2018-12-22] MEDS: DOCUSATE SODIUM 100 MG CAP PO (02:42)
[2018-12-22] MEDS: morphine 4 MG/ML VIAL IV ×5 (02:42→22:35)
[2018-12-22] MEDS: ALBUTEROL/IPRATROPIUM (NEB) 3 ML AMP HHN ×3 (08:17→16:08)
[2018-12-22] MEDS: LACTOBACILLUS RHAMNOSUS CAP PO ×2 (08:33→20:49)
[2018-12-22] MEDS: RIVAROXABAN 20 MG TABLET PO (17:43)
[2018-12-22] MEDS: OXYCODONE/ACETAMINOPHEN (10/325) TAB PO (20:49)
[2018-12-23] MEDS: morphine 4 MG/ML VIAL IV ×3 (02:44→10:52)
[2018-12-23] MEDS: ACETAMINOPHEN 325 MG TAB PO (03:22)
[2018-12-23] MEDS: ALBUTEROL/IPRATROPIUM (NEB) 3 ML AMP HHN ×3 (08:00→16:00)
[2018-12-23] MEDS: LACTOBACILLUS RHAMNOSUS CAP PO ×2 (08:48→20:25)
[2018-12-23] MEDS: HYDROmorphONE 0.5 MG/0.5 ML SYG IV ×4 (13:28→22:53)
[2018-12-23] MEDS: RIVAROXABAN 20 MG TABLET PO (17:22)
[2018-12-23] MEDS: HYDROCORTISONE 1% 28.35 GM OINT TOP ×2 (21:00)
[2018-12-24] MEDS: HYDROmorphONE 0.5 MG/0.5 ML SYG IV ×7 (01:54→23:35)
[2018-12-24] MEDS: ACETAMINOPHEN 325 MG TAB PO (02:34)
[2018-12-24] MEDS: HYDROCORTISONE 1% 28.35 GM OINT TOP ×3 (02:40→20:30)
[2018-12-24] MEDS: ALBUTEROL/IPRATROPIUM (NEB) 3 ML AMP HHN ×3 (07:46→16:13)
[2018-12-24] MEDS: LACTOBACILLUS RHAMNOSUS CAP PO ×2 (08:10→20:26)
[2018-12-24] MEDS: IBUPROFEN 600 MG TAB PO ×3 (11:07→23:43)
[2018-12-24] MEDS: HYDROmorphONE 1 MG/ML SYG IV (11:07)
[2018-12-24] MEDS: FERROUS SULFATE (EC) 325 MG TAB PO ×2 (11:07→20:26)
[2018-12-24] MEDS: OXYCODONE/ACETAMINOPHEN (10/325) TAB PO (14:19)
[2018-12-24] MEDS: RIVAROXABAN 20 MG TABLET PO (17:13)
[2018-12-25] MEDS: ALBUTEROL/IPRATROPIUM (NEB) 3 ML AMP HHN ×3 (00:29→16:50)
[2018-12-25] MEDS: HYDROmorphONE 0.5 MG/0.5 ML SYG IV ×8 (02:42→23:51)
[2018-12-25] MEDS: IBUPROFEN 600 MG TAB PO (05:35)
[2018-12-25] MEDS: FERROUS SULFATE (EC) 325 MG TAB PO ×2 (08:40→20:51)
[2018-12-25] MEDS: HYDROCORTISONE 1% 28.35 GM OINT TOP ×2 (08:40→20:52)
[2018-12-25] MEDS: LACTOBACILLUS RHAMNOSUS CAP PO ×2 (08:40→20:51)
[2018-12-25] MEDS: RIVAROXABAN 20 MG TABLET PO (17:45)
[2018-12-26] MEDS: ALBUTEROL/IPRATROPIUM (NEB) 3 ML AMP HHN ×3 (00:11→16:00)
[2018-12-26] MEDS: ACETAMINOPHEN 325 MG TAB PO (00:32)
[2018-12-26] MEDS: HYDROmorphONE 0.5 MG/0.5 ML SYG IV ×7 (02:53→22:44)
[2018-12-26 06:09] LABS: ADD MAN DIFF? NO
[2018-12-26 06:15] LABS: BASOPHIL # 0.1 10^3/ul (0.0-0.1); BASOPHILS % 0.8 % (0.0-2.0); EOSINOPHILS # 0.4 10^3/ul (0.0-0.5); EOSINOPHILS % 4.2 % (0.0-7.0); HEMATOCRIT 32.2 % (42.0-52.0); HEMOGLOBIN 9.7 g/dl (14.0-18.0); LYMPHOCYTES # 1.6 10^3/ul (0.8-2.9); LYMPHOCYTES % 16.3 % (15.0-51.0); MEAN CORPUSCULAR HEMOGLOBIN 24.1 pg (29.0-33.0); MEAN CORPUSCULAR HGB CONC 30.1 g/dl (32.0-37.0); MEAN CORPUSCULAR VOLUME 79.9 fl (82.0-101.0); MEAN PLATELET VOLUME 9.6 fl (7.4-10.4); MONOCYTE # 1.3 10^3/ul (0.3-0.9); MONOCYTES % 13.2 % (0.0-11.0); NEUTROPHIL # 6.4 10^3/ul (1.6-7.5); NEUTROPHILS % 64.2 % (39.0-77.0); PLATELET COUNT 612 10^3/UL (140-415); RED BLOOD COUNT 4.03 10^6/ul (4.70-6.10); RED CELL DISTRIBUTION WIDTH 15.8 % (11.5-14.5)
[2018-12-26 06:42] LABS: ALANINE AMINOTRANSFERASE 10 IU/L (13-69); ALBUMIN 3.8 g/dl (3.3-4.9); ALBUMIN/GLOBULIN RATIO 1.02; ALKALINE PHOSPHATASE 61 IU/L (42-121); ANION GAP 13 (5-13); ASPARTATE AMINO TRANSFERASE 19 IU/L (15-46); BLOOD UREA NITROGEN 14 mg/dl (7-20); CALCIUM 9.6 mg/dl (8.4-10.2); CARBON DIOXIDE 31 mmol/L (21-31); CHLORIDE 97 mmol/L (97-110); CREATININE 0.73 mg/dl (0.61-1.24); Estimated GFR > 60 mL/min (>60); GLUCOSE 101 mg/dl (70-220); POTASSIUM 4.3 mmol/L (3.5-5.1); SODIUM 141 mmol/L (135-144); TOTAL PROTEIN 7.5 g/dl (6.1-8.1)
[2018-12-26] MEDS: LACTOBACILLUS RHAMNOSUS CAP PO ×2 (08:37→19:44)
[2018-12-26] MEDS: FERROUS SULFATE (EC) 325 MG TAB PO ×2 (08:37→19:44)
[2018-12-26] MEDS: HYDROCORTISONE 1% 28.35 GM OINT TOP ×2 (08:37→19:45)
[2018-12-26] MEDS: RIVAROXABAN 20 MG TABLET PO (18:00)
[2018-12-27] MEDS: ALBUTEROL/IPRATROPIUM (NEB) 3 ML AMP HHN ×3 (00:05→15:38)
[2018-12-27] MEDS: HYDROmorphONE 0.5 MG/0.5 ML SYG IV ×7 (01:54→21:46)
[2018-12-27] MEDS: FERROUS SULFATE (EC) 325 MG TAB PO ×2 (08:15→21:46)
[2018-12-27] MEDS: DOCUSATE SODIUM 100 MG CAP PO (08:15)
[2018-12-27] MEDS: LACTOBACILLUS RHAMNOSUS CAP PO ×2 (08:15→21:46)
[2018-12-27] MEDS: HYDROCORTISONE 1% 28.35 GM OINT TOP ×2 (08:16→21:00)
[2018-12-27] MEDS: RIVAROXABAN 20 MG TABLET PO (18:18)
[2018-12-27] MEDS: ZOLPIDEM 5 MG TAB PO (22:42)
[2018-12-28] MEDS: ALBUTEROL/IPRATROPIUM (NEB) 3 ML AMP HHN ×4 (00:24→23:08)
[2018-12-28] MEDS: HYDROmorphONE 0.5 MG/0.5 ML SYG IV ×8 (00:49→23:42)
[2018-12-28] MEDS: FERROUS SULFATE (EC) 325 MG TAB PO ×2 (08:37→20:38)
[2018-12-28] MEDS: LACTOBACILLUS RHAMNOSUS CAP PO ×2 (08:37→20:38)
[2018-12-28] MEDS: HYDROCORTISONE 1% 28.35 GM OINT TOP ×2 (08:39→20:52)
[2018-12-28] MEDS: RIVAROXABAN 20 MG TABLET PO (17:39)
[2018-12-29] MEDS: HYDROmorphONE 0.5 MG/0.5 ML SYG IV ×7 (02:45→21:49)
[2018-12-29] MEDS: ALBUTEROL/IPRATROPIUM (NEB) 3 ML AMP HHN ×3 (08:07→23:49)
[2018-12-29] MEDS: FERROUS SULFATE (EC) 325 MG TAB PO ×2 (08:41→21:49)
[2018-12-29] MEDS: LACTOBACILLUS RHAMNOSUS CAP PO ×2 (08:41→21:49)
[2018-12-29] MEDS: HYDROCORTISONE 1% 28.35 GM OINT TOP ×2 (15:08→21:00)
[2018-12-29] MEDS: RIVAROXABAN 20 MG TABLET PO (18:49)
[2018-12-30] MEDS: HYDROmorphONE 0.5 MG/0.5 ML SYG IV ×8 (00:49→23:03)
[2018-12-30] MEDS: ALBUTEROL/IPRATROPIUM (NEB) 3 ML AMP HHN ×2 (08:00→16:00)
[2018-12-30] MEDS: LACTOBACILLUS RHAMNOSUS CAP PO ×2 (08:54→20:37)
[2018-12-30] MEDS: FERROUS SULFATE (EC) 325 MG TAB PO ×2 (08:54→20:37)
[2018-12-30] MEDS: HYDROCORTISONE 1% 28.35 GM OINT TOP ×2 (08:56→20:50)
[2018-12-30] MEDS: RIVAROXABAN 20 MG TABLET PO (18:03)
[2018-12-31] MEDS: ALBUTEROL/IPRATROPIUM (NEB) 3 ML AMP HHN ×3 (00:22→16:00)
[2018-12-31] MEDS: HYDROmorphONE 0.5 MG/0.5 ML SYG IV ×5 (02:04→15:11)
[2018-12-31] MEDS: LACTOBACILLUS RHAMNOSUS CAP PO (08:30)
[2018-12-31] MEDS: FERROUS SULFATE (EC) 325 MG TAB PO (08:30)
[2018-12-31] MEDS: HYDROCORTISONE 1% 28.35 GM OINT TOP (08:32)
[2018-12-31] MEDS: RIVAROXABAN 20 MG TABLET PO (17:01)
== END 2018-12-31 18:43 | disposition home or self-care (01) | DRG 186 ==
LOC: PP2 12-10 14:09 → E/R 15:22 → 6WM 19:36
PROC: 0W9930Z Drainage of Right Pleural Cavity with Drainage Device, Percutaneous Approach (ICD-10-PCS; principal; 2018-12-07 10:00)
DX: J94.2 Hemothorax (principal); J18.9 Pneumonia, unspecified organism; I82.501 Chronic embolism and thrombosis of unspecified deep veins of right lower extremity; I27.82 Chronic pulmonary embolism; J90 Pleural effusion, not elsewhere classified; J43.9 Emphysema, unspecified; R62.51 Failure to thrive (child); Z86.19 Personal history of other infectious and parasitic diseases; Z59.0 Homelessness; Z91.19 Patient's noncompliance with other medical treatment and regimen
CPT/HCPCS: 36415; 36589; 71045; 71046; 71260; 73030-RT; 74018; 75989; 76000; 76998; 80048; 80053; 80202; 82042; 82565; 82728; 83036; 83540; 83615; 83735; 84100; 84443; 84484; 84520; 85025; 85610; 85730; 86606; 87040; 87070; 87075; 87102; 87116; 88104; 88305; 89051; 90686; 93005; 94640; 94664; 99285-25

== ENCOUNTER 2019-02-01 16:08 | Inpatient (IN) | payer OTHER ==
[2019-02-01] MEDS: SODIUM CHLORIDE 0.9% 1L BAG IV* (20:24)
[2019-02-01 20:42] LABS: ADD MAN DIFF? NO
[2019-02-01 20:43] LABS: BASOPHIL # 0.1 10^3/ul (0.0-0.1); BASOPHILS % 0.5 % (0.0-2.0); EOSINOPHILS # 0.1 10^3/ul (0.0-0.5); EOSINOPHILS % 0.7 % (0.0-7.0); HEMATOCRIT 32.5 % (42.0-52.0); HEMOGLOBIN 10.2 g/dl (14.0-18.0); LYMPHOCYTES # 1.5 10^3/ul (0.8-2.9); LYMPHOCYTES % 13.5 % (15.0-51.0); MEAN CORPUSCULAR HEMOGLOBIN 24.8 pg (29.0-33.0); MEAN CORPUSCULAR HGB CONC 31.4 g/dl (32.0-37.0); MEAN CORPUSCULAR VOLUME 78.9 fl (82.0-101.0); MEAN PLATELET VOLUME 8.4 fl (7.4-10.4); MONOCYTE # 0.8 10^3/ul (0.3-0.9); MONOCYTES % 7.5 % (0.0-11.0); NEUTROPHIL # 8.4 10^3/ul (1.6-7.5); NEUTROPHILS % 76.9 % (39.0-77.0); PLATELET COUNT 602 10^3/UL (140-415); RED BLOOD COUNT 4.12 10^6/ul (4.70-6.10); RED CELL DISTRIBUTION WIDTH 18.1 % (11.5-14.5)
[2019-02-01 21:01] LABS: ALBUMIN/GLOBULIN RATIO 1.14; ALKALINE PHOSPHATASE 99 IU/L (42-121); ANION GAP 14 (5-13); ASPARTATE AMINO TRANSFERASE 40 IU/L (15-46); BILIRUBIN,INDIRECT 0.1 mg/dl (0-1.1); BILIRUBIN,TOTAL 0.1 mg/dl (0.2-1.3); BLOOD UREA NITROGEN 12 mg/dl (7-20); CALCIUM 8.9 mg/dl (8.4-10.2); CARBON DIOXIDE 23 mmol/L (21-31); CHLORIDE 100 mmol/L (97-110); Estimated GFR > 60 mL/min (>60); GLUCOSE 92 mg/dl (70-220); POTASSIUM 3.5 mmol/L (3.5-5.1); SODIUM 137 mmol/L (135-144); TOTAL PROTEIN 7.5 g/dl (6.1-8.1)
[2019-02-01 21:02] LABS: ALANINE AMINOTRANSFERASE < 6 IU/L (13-69); INR 0.89; PROTIME 12.1 Sec (11.9-14.9); PT RATIO 0.9
[2019-02-01 21:03] LABS: PARTIAL THROMBOPLASTIN TIME 31.5 Sec (23.0-35.0)
[2019-02-01] MEDS: SOD CHLORIDE 0.9% 1,950 ML IV (21:09)
[2019-02-01 21:12] LABS: TROPONIN-I < 0.012 ng/ml (0.000-0.120)
[2019-02-01] MEDS: PIPER-TAZO 3.375 GM IV (PMX) 100 ML IVPB (21:14)
[2019-02-01 21:27] LABS: ADD UMIC NO; UR ASCORBIC ACID NEGATIVE (NEGATIVE); UR BILIRUBIN (Dip) NEGATIVE (NEGATIVE); UR BLOOD (Dip) NEGATIVE (NEGATIVE); UR CLARITY CLEAR (CLEAR); UR COLOR STRAW (YELLOW); UR GLUCOSE (Dip) NEGATIVE (NEGATIVE); UR KETONES (Dip) NEGATIVE (NEGATIVE); UR LEUKOCYTE ESTERASE (Dip) NEGATIVE Leu/ul (NEGATIVE); UR NITRITE (Dip) NEGATIVE (NEGATIVE); UR SPECIFIC GRAVITY (Dip) 1.003 (1.003-1.030); UR TOTAL PROTEIN (Dip) NEGATIVE (NEGATIVE); UR UROBILINOGEN (Dip) NEGATIVE (NEGATIVE)
[2019-02-01] MEDS: VANCOMYCIN 1 GM (PMX) 250 ML IVPB (21:48)
[2019-02-01] MEDS ORDERED: NACL 0.9% 3 ML SYG IV (23:00)
[2019-02-01] MEDS ORDERED: ONDANSETRON 4 MG INJ IV (23:00)
[2019-02-01 23:55] LABS: LACTIC ACID 1.8 mmol/L (0.5-2.0)
[2019-02-02] MEDS ORDERED: VANCOMYCIN IV PER PHARMACY XX
[2019-02-02] MEDS: PIPER-TAZO 3.375 GM IV (PMX) 100 ML IVPB ×4 (01:33→18:44)
[2019-02-02 03:06] LABS: LACTIC ACID 1.8 mmol/L (0.5-2.0)
[2019-02-02] MEDS: VANCOMYCIN HCL 1.25 GM in SOD CHLORIDE 0.9% 250 ML IVPB ×2 (05:35→16:48)
[2019-02-02 06:24] LABS: ADD MAN DIFF? NO
[2019-02-02 06:27] LABS: BASOPHILS % 0.5 % (0.0-2.0); EOSINOPHILS # 0.1 10^3/ul (0.0-0.5); EOSINOPHILS % 1.7 % (0.0-7.0); HEMATOCRIT 32.5 % (42.0-52.0); HEMOGLOBIN 10.2 g/dl (14.0-18.0); MEAN CORPUSCULAR HEMOGLOBIN 24.9 pg (29.0-33.0); MEAN CORPUSCULAR HGB CONC 31.4 g/dl (32.0-37.0); MEAN CORPUSCULAR VOLUME 79.5 fl (82.0-101.0); MEAN PLATELET VOLUME 8.6 fl (7.4-10.4); MONOCYTE # 0.7 10^3/ul (0.3-0.9); MONOCYTES % 9.1 % (0.0-11.0); NEUTROPHIL # 6.1 10^3/ul (1.6-7.5); NEUTROPHILS % 75.7 % (39.0-77.0); PLATELET COUNT 573 10^3/UL (140-415); RED BLOOD COUNT 4.09 10^6/ul (4.70-6.10); RED CELL DISTRIBUTION WIDTH 18.4 % (11.5-14.5)
[2019-02-02 06:58] LABS: ALANINE AMINOTRANSFERASE 11 IU/L (13-69); ALBUMIN 3.6 g/dl (3.3-4.9); ALBUMIN/GLOBULIN RATIO 1.05; ALKALINE PHOSPHATASE 88 IU/L (42-121); ANION GAP 10 (5-13); ASPARTATE AMINO TRANSFERASE 35 IU/L (15-46); BILIRUBIN,INDIRECT 0.2 mg/dl (0-1.1); BILIRUBIN,TOTAL 0.2 mg/dl (0.2-1.3); BLOOD UREA NITROGEN 10 mg/dl (7-20); CALCIUM 8.7 mg/dl (8.4-10.2); CARBON DIOXIDE 24 mmol/L (21-31); CHLORIDE 109 mmol/L (97-110); CREATININE 0.78 mg/dl (0.61-1.24); Estimated GFR > 60 mL/min (>60); GLUCOSE 85 mg/dl (70-220); MAGNESIUM 1.9 mg/dl (1.7-2.5); POTASSIUM 3.8 mmol/L (3.5-5.1); SODIUM 143 mmol/L (135-144)
[2019-02-02 07:12] LABS: HEMOGLOBIN A1C 5.5 % (0-5.9)
[2019-02-02] MEDS: MULTIVITAMINS THERAPEUTIC TAB PO (08:36)
[2019-02-02] MEDS: FERROUS SULFATE (EC) 325 MG TAB PO ×2 (08:36→20:35)
[2019-02-02] MEDS: FOLIC ACID 1 MG TAB PO (08:36)
[2019-02-02] MEDS: THIAMINE 100 MG TAB PO (08:36)
[2019-02-02] MEDS: EUCERIN 113 GM CR TOP ×3 (08:41→20:36)
[2019-02-02 11:28] LABS: THYROID STIMULATING HORMONE 0.609 MIU/L (0.465-4.680)
[2019-02-03] MEDS: PIPER-TAZO 3.375 GM IV (PMX) 100 ML IVPB ×2 (00:16→05:08)
[2019-02-03] MEDS: VANCOMYCIN HCL 1.25 GM in SOD CHLORIDE 0.9% 250 ML IVPB (05:08)
[2019-02-03] MEDS: FERROUS SULFATE (EC) 325 MG TAB PO ×2 (07:45→20:25)
[2019-02-03] MEDS: MULTIVITAMINS THERAPEUTIC TAB PO (07:45)
[2019-02-03] MEDS: THIAMINE 100 MG TAB PO (07:45)
[2019-02-03] MEDS: FOLIC ACID 1 MG TAB PO (07:45)
[2019-02-03] MEDS: EUCERIN 113 GM CR TOP ×2 (07:46→20:29)
[2019-02-03] MEDS: ENOXAPARIN 80 MG/0.8 ML SYG SC (20:29)
[2019-02-04] MEDS: ENOXAPARIN 80 MG/0.8 ML SYG SC ×2 (07:32→21:00)
[2019-02-04] MEDS: THIAMINE 100 MG TAB PO (07:33)
[2019-02-04] MEDS: FOLIC ACID 1 MG TAB PO (07:33)
[2019-02-04] MEDS: MULTIVITAMINS THERAPEUTIC TAB PO (07:33)
[2019-02-04] MEDS: FERROUS SULFATE (EC) 325 MG TAB PO ×2 (07:33→21:00)
[2019-02-04] MEDS: EUCERIN 113 GM CR TOP ×2 (07:33→21:00)
[2019-02-04 07:52] LABS: ADD MAN DIFF? NO
[2019-02-04 07:57] LABS: WHITE BLOOD COUNT 7.7 10^3/ul (4.8-10.8)
[2019-02-04 07:57] LABS: BASOPHIL # 0.1 10^3/ul (0.0-0.1); BASOPHILS % 0.6 % (0.0-2.0); EOSINOPHILS # 0.4 10^3/ul (0.0-0.5); EOSINOPHILS % 4.8 % (0.0-7.0); HEMOGLOBIN 10.5 g/dl (14.0-18.0); LYMPHOCYTES # 1.2 10^3/ul (0.8-2.9); LYMPHOCYTES % 15.5 % (15.0-51.0); MEAN CORPUSCULAR HEMOGLOBIN 25.1 pg (29.0-33.0); MEAN CORPUSCULAR HGB CONC 30.9 g/dl (32.0-37.0); MEAN CORPUSCULAR VOLUME 81.1 fl (82.0-101.0); MEAN PLATELET VOLUME 8.7 fl (7.4-10.4); MONOCYTE # 0.6 10^3/ul (0.3-0.9); MONOCYTES % 7.4 % (0.0-11.0); NEUTROPHIL # 5.4 10^3/ul (1.6-7.5); NEUTROPHILS % 70.1 % (39.0-77.0); PLATELET COUNT 513 10^3/UL (140-415); RED BLOOD COUNT 4.19 10^6/ul (4.70-6.10); RED CELL DISTRIBUTION WIDTH 18.6 % (11.5-14.5)
[2019-02-04 08:25] LABS: ANION GAP 13 (5-13); BLOOD UREA NITROGEN 9 mg/dl (7-20); CALCIUM 9.6 mg/dl (8.4-10.2); CARBON DIOXIDE 27 mmol/L (21-31); CHLORIDE 101 mmol/L (97-110); CREATININE 0.75 mg/dl (0.61-1.24); Estimated GFR > 60 mL/min (>60); GLUCOSE 110 mg/dl (70-220); POTASSIUM 3.7 mmol/L (3.5-5.1); SODIUM 141 mmol/L (135-144)
[2019-02-04] MEDS ORDERED: VANCOMYCIN IV PER PHARMACY XX (09:30)
[2019-02-04] MEDS: AMLODIPINE 5 MG TAB PO (10:08)
[2019-02-04] MEDS: VANCOMYCIN HCL 1.25 GM in SOD CHLORIDE 0.9% 250 ML IVPB ×2 (12:09→23:00)
[2019-02-04] MEDS: PERMETHRIN 1% 59 ML TOP (15:39)
[2019-02-05] MEDS: FERROUS SULFATE (EC) 325 MG TAB PO ×2 (08:22→20:57)
[2019-02-05] MEDS: AMLODIPINE 5 MG TAB PO (08:23)
[2019-02-05] MEDS: MULTIVITAMINS THERAPEUTIC TAB PO (08:23)
[2019-02-05] MEDS: THIAMINE 100 MG TAB PO (08:23)
[2019-02-05] MEDS: FOLIC ACID 1 MG TAB PO (08:23)
[2019-02-05] MEDS: EUCERIN 113 GM CR TOP ×2 (08:24→21:24)
[2019-02-05] MEDS: ENOXAPARIN 80 MG/0.8 ML SYG SC ×2 (08:27→21:00)
[2019-02-05] MEDS: HYDROCODONE/APAP (5/325) TAB PO (08:35)
[2019-02-05] MEDS: VANCOMYCIN HCL 1.25 GM in SOD CHLORIDE 0.9% 250 ML IVPB ×2 (11:42→23:21)
[2019-02-06] MEDS: MULTIVITAMINS THERAPEUTIC TAB PO (08:36)
[2019-02-06] MEDS: FOLIC ACID 1 MG TAB PO (08:36)
[2019-02-06] MEDS: THIAMINE 100 MG TAB PO (08:36)
[2019-02-06] MEDS: FERROUS SULFATE (EC) 325 MG TAB PO ×2 (08:36→20:55)
[2019-02-06] MEDS: ENOXAPARIN 80 MG/0.8 ML SYG SC ×2 (08:42→20:57)
[2019-02-06] MEDS: EUCERIN 113 GM CR TOP ×2 (08:45→21:00)
[2019-02-06] MEDS: HYDROCODONE/APAP (5/325) TAB PO ×2 (08:48→18:04)
[2019-02-06] MEDS: AMLODIPINE 5 MG TAB PO (08:48)
[2019-02-06] MEDS: VANCOMYCIN HCL 1.25 GM in SOD CHLORIDE 0.9% 250 ML IVPB (10:56)
[2019-02-07] MEDS: HYDROCODONE/APAP (5/325) TAB PO ×3 (00:31→17:49)
[2019-02-07] MEDS: EUCERIN 113 GM CR TOP ×2 (08:45→20:06)
[2019-02-07] MEDS: FERROUS SULFATE (EC) 325 MG TAB PO ×2 (08:46→20:02)
[2019-02-07] MEDS: THIAMINE 100 MG TAB PO (08:46)
[2019-02-07] MEDS: AMLODIPINE 5 MG TAB PO (08:46)
[2019-02-07] MEDS: MULTIVITAMINS THERAPEUTIC TAB PO (08:46)
[2019-02-07] MEDS: FOLIC ACID 1 MG TAB PO (08:46)
[2019-02-07] MEDS: ENOXAPARIN 80 MG/0.8 ML SYG SC ×2 (08:48→20:04)
[2019-02-07] MEDS: LEVALBUTEROL (NEB) 1.25 MG/0.5 ML AMP HHN (20:23)
[2019-02-07] MEDS: IPRATROPIUM (NEB) 0.5 MG/2.5 ML AMP HHN (20:23)
[2019-02-07] MEDS: ACETAMINOPHEN 325 MG TAB PO (22:02)
[2019-02-08] MEDS: HYDROCODONE/APAP (5/325) TAB PO ×3 (00:45→18:17)
[2019-02-08] MEDS: FERROUS SULFATE (EC) 325 MG TAB PO ×2 (09:00→20:44)
[2019-02-08] MEDS: MULTIVITAMINS THERAPEUTIC TAB PO (09:00)
[2019-02-08] MEDS: EUCERIN 113 GM CR TOP ×2 (09:00→20:44)
[2019-02-08] MEDS: AMLODIPINE 5 MG TAB PO (09:00)
[2019-02-08] MEDS: FOLIC ACID 1 MG TAB PO (09:00)
[2019-02-08] MEDS: THIAMINE 100 MG TAB PO (09:00)
[2019-02-08] MEDS: ENOXAPARIN 80 MG/0.8 ML SYG SC ×2 (09:03→20:42)
[2019-02-08] MEDS: HYDROCORTISONE 0.5% 28.35 GM CR TOP (09:06)
[2019-02-09] MEDS: HYDROCODONE/APAP (5/325) TAB PO ×2 (00:19→10:46)
[2019-02-09] MEDS ORDERED: MIDAZOLAM 1 MG/ML 2 ML INJ (09:16)
[2019-02-09] MEDS ORDERED: FENTAnyl 50 MCG/ML VIAL (09:16)
[2019-02-09] MEDS ORDERED: LIDOCAINE 1% (MDV) 20 ML INJ (09:42)
[2019-02-09] MEDS ORDERED: SOD CHLORIDE 0.9% 1,000 ML (10:09)
[2019-02-09] MEDS: ENOXAPARIN 80 MG/0.8 ML SYG SC ×2 (10:37→22:12)
[2019-02-09] MEDS: FOLIC ACID 1 MG TAB PO (10:39)
[2019-02-09] MEDS: FERROUS SULFATE (EC) 325 MG TAB PO ×2 (10:40→22:06)
[2019-02-09] MEDS: MULTIVITAMINS THERAPEUTIC TAB PO (10:40)
[2019-02-09] MEDS: THIAMINE 100 MG TAB PO (10:40)
[2019-02-09] MEDS: AMLODIPINE 5 MG TAB PO (10:40)
[2019-02-09] MEDS: EUCERIN 113 GM CR TOP ×2 (10:41→22:06)
[2019-02-09] MEDS: LEVALBUTEROL (NEB) 1.25 MG/0.5 ML AMP HHN (20:55)
[2019-02-09] MEDS: IPRATROPIUM (NEB) 0.5 MG/2.5 ML AMP HHN (20:55)
[2019-02-10] MEDS: HYDROCODONE/APAP (5/325) TAB PO ×2 (04:46→19:54)
[2019-02-10] MEDS: EUCERIN 113 GM CR TOP ×2 (08:13→20:34)
[2019-02-10] MEDS: FERROUS SULFATE (EC) 325 MG TAB PO ×2 (08:14→20:32)
[2019-02-10] MEDS: MULTIVITAMINS THERAPEUTIC TAB PO (08:14)
[2019-02-10] MEDS: AMLODIPINE 5 MG TAB PO (08:14)
[2019-02-10] MEDS: FOLIC ACID 1 MG TAB PO (08:14)
[2019-02-10] MEDS: THIAMINE 100 MG TAB PO (08:14)
[2019-02-10] MEDS: ENOXAPARIN 80 MG/0.8 ML SYG SC ×2 (08:15→20:32)
[2019-02-11] MEDS: HYDROCODONE/APAP (5/325) TAB PO (03:17)
[2019-02-11] MEDS: LORAZEPAM 2 MG INJ IV (03:19)
[2019-02-11] MEDS: ENOXAPARIN 80 MG/0.8 ML SYG SC (08:55)
[2019-02-11] MEDS: FERROUS SULFATE (EC) 325 MG TAB PO (08:55)
[2019-02-11] MEDS: MULTIVITAMINS THERAPEUTIC TAB PO (08:55)
[2019-02-11] MEDS: THIAMINE 100 MG TAB PO (08:56)
[2019-02-11] MEDS: AMLODIPINE 5 MG TAB PO (08:56)
[2019-02-11] MEDS: FOLIC ACID 1 MG TAB PO (08:56)
[2019-02-11] MEDS: EUCERIN 113 GM CR TOP (09:00)
== END 2019-02-11 09:30 | disposition left against medical advice (07) | DRG 187 ==
LOC: 6WM 22:21 → E/R 16:08 → 5EC 02-05 14:46 → 6WM 23:46
PROC: 0W9930Z Drainage of Right Pleural Cavity with Drainage Device, Percutaneous Approach (ICD-10-PCS; principal; 2019-02-09 08:30)
DX: J94.8 Other specified pleural conditions (principal); R65.10 Systemic inflammatory response syndrome (SIRS) of non-infectious origin without acute organ dysfunction; E87.2 Acidosis; D50.9 Iron deficiency anemia, unspecified; J43.9 Emphysema, unspecified; I10 Essential (primary) hypertension; Z86.711 Personal history of pulmonary embolism; Z79.01 Long term (current) use of anticoagulants; Z86.718 Personal history of other venous thrombosis and embolism; Z86.19 Personal history of other infectious and parasitic diseases; Z87.891 Personal history of nicotine dependence; Z59.0 Homelessness
CPT/HCPCS: 32550; 36415; 71045; 71250; 80048; 80053; 80307; 81003; 83036; 83605; 83735; 84443; 84484; 85025; 85610; 85730; 87040-91; 87086; 93005; 94640; 94664; 96374; 96375; 99291-25